=== PATIENT | male | born 1975 | race Caucasian/White ===

== ENCOUNTER 2020-07-29 19:49 | Inpatient (IN) | payer MEDICARE, OTHER ==
[~2020-07-29] VITALS: Ht 170.2 cm; Wt 141.5 kg
--- NOTE | 2020-07-29 19:53 | NUR ---
JOSELIN FROM [facility] FOR ABNORMAL LAB. PT MISSED HIS HD SESSION TODAY DUE TO "I WAS FEELING SICK, & I HAD PINK SPUTUM EARLIER TODAY", PT AAOX4, DENIES SOB/CP. VSS. NAD. PENDING ER PROVIDER DARRICK
[2020-07-29 20:17] LABS: BASOPHILS % (AUTO) 0.9 % (0.0-2.0); EOSINOPHILS % (AUTO) 9.4 % (0.0-6.0); HEMATOCRIT 25 % (39-51); HEMOGLOBIN 8.3 g/dL (13.5-17.5); LYMPHOCYTES # (AUTO) 0.6 /CMM (0.8-4.8); LYMPHOCYTES % (AUTO) 13.1 % (20.0-44.0); MEAN CORPUSCULAR HGB CONC 33 g/dl (31.0-36.0); MEAN CORPUSCULAR VOLUME 90 fL (80-96); MONOCYTES # (AUTO) 0.3 /CMM (0.1-1.30); NEUTROPHILS # (AUTO) 3.3 /CMM (1.8-8.9); NEUTROPHILS % (AUTO) 69.6 % (43.0-81.0); PLATELET COUNT (AUTO) 158 /CMM (150-450); RED BLOOD CELL COUNT(AUTO) 2.75 MIL/uL (4.5-6.0); WHITE BLOOD COUNT (AUTO) 4.7 K/uL (4.3-11.0)
[2020-07-29 20:38] LABS: ALANINE AMINOTRANSFERASE 20 U/L (12-78); ALBUMIN 3.3 g/dL (3.4-5.0); ALKALINE PHOSPHATASE 78 U/L (46-116); ASPARTATE AMINOTRANSFERASE 24 U/L (15-37); B-TYPE NATRIURETIC PEPTIDE 3982 PG/ML (0-125); BILIRUBIN,DIRECT 0.1 mg/dL (0.0-0.2); BILIRUBIN,TOTAL 0.5 mg/dL (0.2-1.0); CALCIUM, SERUM 8.8 mg/dL (8.5-10.1); CARBON DIOXIDE 27 mmol/L (21-32); CHLORIDE 95 mmol/L (98-107); GLUCOSE 106 mg/dL (74-106); POTASSIUM 5.5 mmol/L (3.5-5.1); SODIUM SERUM 134 mmol/L (136-145); TOTAL PROTEIN, SERUM 6.9 g/dL (6.4-8.2); UREA NITROGEN, BLOOD 73 mg/dL (7-18)
[2020-07-29 20:45] LABS: CREATININE 10.9 mg/dL (0.6-1.3)
[2020-07-29] MEDS ORDERED: LEVOFLOXACIN 750 MG /D5W 150ML 150 ML IV ONE ×2 (22:00→22:05)
[2020-07-29] MEDS ORDERED: ALPR0.25 PO (22:25)
[2020-07-29] MEDS ORDERED: SEVE800T8 PO (22:25)
[2020-07-29] MEDS ORDERED: LITH150C PO (22:25)
[2020-07-29] MEDS ORDERED: ALBU18HF2 INH (22:25)
[2020-07-29] MEDS ORDERED: RISP1TAB97 PO (22:25)
[2020-07-29] MEDS ORDERED: BUPR150T10 PO (22:25)
[2020-07-29] MEDS ORDERED: ROPI0.5T4 PO (22:25)
[2020-07-29] MEDS ORDERED: ESTR1PAT7 TD (22:25)
[2020-07-29] MEDS ORDERED: MOME13HF IH (22:25)
[2020-07-29] MEDS ORDERED: POLY17PO4 PO (22:25)
[2020-07-29] MEDS ORDERED: GABA300C PO (22:25)
[2020-07-29] MEDS ORDERED: PROC10TA13 PO (22:25)
[2020-07-29] MEDS ORDERED: HYDR-500 PO (22:25)
[2020-07-29] MEDS ORDERED: ONDA4TAB5 PO (22:25)
[2020-07-29] MEDS ORDERED: METO25TA6 PO (22:25)
[2020-07-29] MEDS ORDERED: OXYC-128 PO (22:25)
[2020-07-29] MEDS ORDERED: LIDO30AD10 TP (22:25)
--- NOTE | 2020-07-29 22:42 | NUR ---
RECIEVED BED 120
--- NOTE | 2020-07-29 22:50 | NUR ---
RN NOTE RECEIVED PT FROM ER VIA SHERLY ACCOMPANIED BY RN. PT IS ALERT AND ORIENTED X 4. AMBULATORY WITHOUT ASSIST. PT ON 4L OF O2 VIA NC. DENIES PAIN OR DISCOMFORT. WITH RIGHT AC 20G FLUSHED AND PATENT WITHOUT COMPLICATIONS NOTED. COMPREHENSIVE PHYSICAL ASSESSMENT COMPLETED. SKIN INTACT. WITH LEFT UPPER ARM AV FISTULA. (+) BRUIT (+) THRILL. PT STATES LAST HEMO DIALYSIS IS 07/27/2020. V BELT MOLD ASSEMBLER AND CURER PLACED SHOWING NSR. PT ORIENTED TO FACILITY, CALL LIGHT WITHIN REACH, SAFETY MEASURES IN PLACE PER PROTOCOL, BED ALARM ON, BED LOCKED AND IN LOW POSITION, SIDE RAILS UP X 2, WILL MONITOR PATIENT, ISABELLA OSBORN TO EXAMINE PT AND ENTER NEW ADMISSION ORDERS. Addendum: 07/30/20 at 0022 by MAYI DUENAS RN ERROR. CORRECTED TIME 2418
--- NOTE | 2020-07-29 23:38 | NUR ---
REPORT GIVEN TO MAYI SAN FOR BRITNEY PT WILL BE TRANSPORTED TO 1ST FLOOR
[2020-07-30] VITALS: BP 155/84
[2020-07-30] MEDS ORDERED: HYDROCODONE/APAP 5/325MG TABLET PO PRN
[2020-07-30] MEDS ORDERED: ZOLPIDEM TARTRATE 5 MG TABLET PO PRN
[2020-07-30] MEDS ORDERED: ALPRAZOLAM 0.25 MG TABLET PO SCH
[2020-07-30] MEDS ORDERED: IPRATROPIUM BROMIDE 14 GM INHALER (or 12.9 GM) IH PRN (00:30)
[2020-07-30] MEDS ORDERED: ALBUTEROL SULFATE INH 18 GM HFA.AER.AD IH PRN (00:30)
--- NOTE | 2020-07-30 00:40 | NUR ---
RN NOTE RT AT BEDSIDE PLACING PT ON CPAP ORDERED.
[2020-07-30] MEDS: GABAPENTIN 300 MG CAPSULE PO SCH ×2 (01:09→21:20)
[2020-07-30] MEDS: ropiniROLE 0.5 MG TABLET PO SCH ×2 (01:09→17:11)
[2020-07-30] MEDS: SEVELAMER CARBONATE 800 MG TABLET PO SCH ×4 (01:09→17:14)
[2020-07-30] MEDS: HEPARIN SODIUM, PORCINE 5000 UNITS/1 ML VIAL SQ SCH ×5 (01:11→21:22)
[2020-07-30] MEDS: methylPREDNISolone SOD SUCC 125 MG/2ML VIAL IV SCH ×3 (01:13→17:14)
--- NOTE | 2020-07-30 01:13 | NUR ---
RT PLACED PATIENT ON NOCTURNAL BIPAP PER MD ORDER. PATIENT STABLE AND TOLERATED CURRENT SETTINGS. WILL CONTINUE TO MONITOR THROUGHOUT THE SHIFT. Addendum: 07/30/20 at 0116 by MADDISON DORSEY RT Amended: Links added.
[2020-07-30 02:24] LABS: C-REACTIVE PROTEIN 1.5 mg/dL (0.0-0.9)
--- NOTE | 2020-07-30 03:38 | NUR ---
RT PATIENT OFF BIPAP AT THIS TIME PER PATIENT REQUEST AND PLACED ON 4L NASAL CANNULA. NO RESPIRATORY DISTRESS NOTED, WILL CONTINUE TO MONITOR. Addendum: 07/30/20 at 0341 by MADDISON DORSEY RT Amended: Links added.
[2020-07-30 04:00] VITALS: BP 150/79
--- NOTE | 2020-07-30 04:18 | NUR ---
RN NOTE PT REQUESTING FOR PRN INHALER. MEDICATION UNAVAILABLE. PAGED ROBI LICENSED REACTOR OPERATOR IF IT CAN BE CHANGED TO NEBULIZER UNTIL MEDICATION IS READY. ALSO PT IS REQUESTING FOR PRN XANAX. CALLED PHARMACY WHO STATES THAT PRESCRIBER NEEDS TO CLARIFY ORDER. AWAITING CALL BACK. Addendum: 07/30/20 at 0502 by MAYI DUENAS RN LICENSED REACTOR OPERATOR CALLED BACK AND PLACED NEW ORDERS. PT MOVED TO ROOM 111 PER PT REQUEST. OFF BIBAP AND ON 4L OF O2 VIA NC. CURRENTLY SITTING UP IN CHAIR AWAKE.
[2020-07-30] MEDS: ALPRAZOLAM 0.25 MG TABLET PO PRN ×2 (04:39→12:23)
[2020-07-30] MEDS: GUAIFENESIN/CODEINE 10 ML UDC PO PRN ×2 (04:54→21:32)
[2020-07-30] MEDS: oxyCODONE/APAP (5/325 MG) 1 UDTAB TABLET PO PRN ×2 (04:54→21:32)
[2020-07-30] MEDS ORDERED: IPRATROPIUM BROMIDE 14 GM INHALER (or 12.9 GM) ONE (05:35)
[2020-07-30] MEDS ORDERED: ALBUTEROL SULFATE 8 GM HFA.AER.AD ONE (05:35)
[2020-07-30 06:40] LABS: BASOPHILS # (AUTO) 0.1 /CMM (0.0-0.2); BASOPHILS % (AUTO) 1.2 % (0.0-2.0); CALCIUM, SERUM 9.3 mg/dL (8.5-10.1); HEMATOCRIT 25 % (39-51); HEMOGLOBIN 8.4 g/dL (13.5-17.5); LYMPHOCYTES # (AUTO) 0.5 /CMM (0.8-4.8); LYMPHOCYTES % (AUTO) 11.5 % (20.0-44.0); MAGNESIUM 2.6 mg/dL (1.8-2.4); MEAN CORPUSCULAR HGB CONC 34 g/dl (31.0-36.0); MEAN CORPUSCULAR VOLUME 89 fL (80-96); MONOCYTES # (AUTO) 0.3 /CMM (0.1-1.30); MONOCYTES % (AUTO) 6.1 % (2.0-12.0); NEUTROPHILS # (AUTO) 3.3 /CMM (1.8-8.9); NEUTROPHILS % (AUTO) 73.2 % (43.0-81.0); PLATELET COUNT (AUTO) 150 /CMM (150-450); POTASSIUM 5.6 mmol/L (3.5-5.1); RED BLOOD CELL COUNT(AUTO) 2.81 MIL/uL (4.5-6.0); WHITE BLOOD COUNT (AUTO) 4.5 K/uL (4.3-11.0)
--- NOTE | 2020-07-30 06:42 | NUR ---
RN NOTE RECEIVED ALERT FOR CRITICAL LAB PHOSPHOROUS 9.4. PT IS PENDING HEMODIALYSIS TODAY PER NEPHROLOGY. WILL ENDORSE TO MORNING RN.
--- NOTE | 2020-07-30 06:44 | NUR ---
RN NOTE PT CURRENTLY RESTING IN BED IN NO APPARENT DISTRESS. ON 4L OF O2 VIA NC. CALL LIGHT WITHIN REACH, SAFETY MEASURES IN PLACE PER PROTOCOL, ALL NEEDS MET AND ATTENDED TO.
[2020-07-30 06:47] LABS: CREATININE 11.4 mg/dL (0.6-1.3); PHOSPHORUS 9.4 mg/dL (2.5-4.9)
--- NOTE | 2020-07-30 07:30 | NUR ---
RN OPENING NOTE PATIENT IS IN BED WITH HOB AT SEMI FOWLERS POSITION. CURRENTLY ON 4L WITH NO SIGNS OF LABORED BREATHING. PATIENT IS AOX4. SKIN IS INTACT. RAC #20 IS PATENT, INTACT, AND HAS NO SIGNS OF INFILTRATION. JONH AVF IS NOTED WITH BRUIT AND THRILL. BED IS LOCKED IN THE LOWEST POSITION, 3 GUARD RAILS RAISED, CALL SMITH WITHIN REACH, AND ALL HOSPITAL SAFETY PRECAUTIONS ARE BEING FOLLOWED. WILL CONTINUE TO MONITOR THROUGHOUT SHIFT.
[2020-07-30 08:00] VITALS: BP 146/65
[2020-07-30] MEDS: LITHIUM CARBONATE 150 MG CAPSULE PO SCH (08:08)
[2020-07-30] MEDS: buPROPion SR 150 MG TABLET.ER PO SCH ×2 (08:08→17:10)
[2020-07-30] MEDS: POLYETHYLENE GLYCOL 3350 17 GM POWD.PACK PO SCH (08:08)
[2020-07-30] MEDS: METOPROLOL TARTRATE 25 MG TABLET PO SCH ×2 (08:09→17:11)
[2020-07-30] MEDS: risperiDONE 1 MG TABLET PO SCH (08:09)
[2020-07-30] MEDS ORDERED: CT SWABBABLE VALVE TRANS SET 1 EA INFUS.SET MC ONE (10:11)
[2020-07-30] MEDS ORDERED: IV NS 0.9% 250 ML IV ONE (10:11)
[2020-07-30] MEDS ORDERED: IOHEXOL-300 100 ML VIAL IV ONE (10:11)
--- NOTE | 2020-07-30 10:37 | NUR ---
PT REFUSED, WANTS DIALYSIS PRIOR TO SCAN. UNABLE TO LAY STILL OR BREATHE.
--- NOTE | 2020-07-30 10:47 | NUR ---
RN NOTE NOTIFIED DR. DIAZ OF PATIENT'S SOB. EXPECTED DIALYSIS LATER TODAY. WILL CONTINUE TO MONITOR.
[2020-07-30] MEDS: IPRATROPIUM NEB FS 0.5 MG/2.5 ML AMPUL.NEB NEB SCH ×4 (11:30→23:12)
[2020-07-30] MEDS: ALBUTEROL FS 2.5 MG/3 ML VIAL.NEB NEB SCH ×4 (11:30→23:12)
[2020-07-30 12:00] VITALS: BP 129/46
--- NOTE | 2020-07-30 13:00 | NUR ---
RN NOTE PATIENT IS COMPLAINING OF SOB AT REST. RT NOTIFIED. ALSO PATIENT REFUSES TO GOT TO CT UNTIL AFTER DIALYSIS LATER TODAY. WILL ENDORSE TO BILLET RECORDER IF NOT ABLE TO COMPLETE BY END OF SHIFT.
[2020-07-30 16:00] VITALS: BP 112/38
--- NOTE | 2020-07-30 19:10 | NUR ---
RN CLOSING NOTE PATIENT IS IN BED WITH HOB AT SEMI FOWLERS POSITION. CURRENTLY ON 4L WITH NO SIGNS OF LABORED BREATHING. PATIENT IS AOX4. SKIN IS INTACT. RAC #20 IS PATENT, INTACT, AND HAS NO SIGNS OF INFILTRATION. JONH AVF IS NOTED WITH BRUIT AND THRILL. BED IS LOCKED IN THE LOWEST POSITION, 3 GUARD RAILS RAISED, CALL SMITH WITHIN REACH, AND ALL HOSPITAL SAFETY PRECAUTIONS ARE BEING FOLLOWED. ALL NECESSARY MEDS GIVEN AND PATIENT REMAINED STABLE THROUGHOUT SHIFT. WILL ENDORSE TO SNAP SHEARER RN.
[2020-07-30] MEDS: ACETAMINOPHEN 325 MG TABLET PO PRN (19:19)
--- NOTE | 2020-07-30 19:22 | NUR ---
PIG MACHINE CRANE OPERATOR OPENING NOTES PATIENT A/O X4; ABLE TO MAKE NEEDS KNOWN. ON O2 4LPM VIA N/C; TOLERATING WELL WITH NO SOB. EXTERNAL DIRECTOR CHEMISTRY READS NSR AND HR AT 88. IV #20G TO RAC; PATENT AND INTACT. AVF TO JONH INTACT; DRESSING C/D/I. SAFETY MEASURES IN PLACE: SIDE RAILS UPX2, CALL LIGHT WITHIN REACH, BED IN LOWEST LOCKED POSITION. PATIENT MEDICALLY STABLE.
[2020-07-30 20:00] VITALS: BP 111/46
[2020-07-30] MEDS ORDERED: LIDOCAINE 5% (PATCH) 1 EA PATCH TP SCH (22:00)
--- NOTE | 2020-07-30 22:38 | NUR ---
HISTORIC CLOTHING AND COSTUME MAKER NOTES - PAIN PATIENT C/O 12/28 HIP PAIN. ADMINISTERED PERCOCET ORDERED. WILL CONTINUE TO ASSESS PATIENT FOR PAIN.
--- NOTE | 2020-07-30 22:40 | NUR ---
STAFF ACCOUNTANT NOTES - LIDOCAINE PATIENT REQUESTED FOR LIDOCAINE PATCHES TO THE HIPS FOR PAIN. ROBI OSBORN EDITOR [place] ORDERED FOR LIDOCAINE PATCH 5% TO THE LEFT AND RIGHT HIP DAILY. ORDERS CARRIED OUT.
[2020-07-30] MEDS: LIDOCAINE 5% (PATCH) 1 EA PATCH TP SCH ×2 (23:47)
[2020-07-31 00:07] VITALS: BP 136/70
[2020-07-31] MEDS: methylPREDNISolone SOD SUCC 125 MG/2ML VIAL IV SCH ×3 (01:21→17:31)
[2020-07-31] MEDS: ACETAMINOPHEN 325 MG TABLET PO PRN ×2 (01:55→08:00)
[2020-07-31] MEDS: ONDANSETRON HCL/PF 4 MG/2 ML VIAL IVP PRN (02:43)
[2020-07-31] MEDS: ALBUTEROL FS 2.5 MG/3 ML VIAL.NEB NEB SCH ×6 (03:23→23:50)
[2020-07-31] MEDS: IPRATROPIUM NEB FS 0.5 MG/2.5 ML AMPUL.NEB NEB SCH ×6 (03:23→23:50)
[2020-07-31 04:00] VITALS: BP 133/80
--- NOTE | 2020-07-31 04:13 | NUR ---
INDUSTRY CONSULTANT NOTES - PCR NEG COVID PCR SWAB TAKEN ON 07/29/2020; RESULT IS NEGATIVE. CHARGE NURSE AWARE.
--- NOTE | 2020-07-31 05:46 | NUR ---
DEPARTMENTAL SHIPPING CLERK CLOSING NOTES PATIENT A/O X4; ABLE TO MAKE NEEDS KNOWN. ON O2 4LPM VIA N/C; TOLERATING WELL WITH NO SOB; PATIENT REFUSED NOCTURNAL BIPAP DURING THE NIGHT. EXTERNAL PRODUCT DESIGN ENGINEER READS NSR AND HR AT 82. IV #20G TO RAC; PATENT AND INTACT. AVF TO JONH INTACT; DRESSING C/D/I. ALL NEEDS MET. SAFETY MEASURES IN PLACE: SIDE RAILS UPX2, CALL LIGHT WITHIN REACH, BED IN LOWEST LOCKED POSITION. PATIENT MEDICALLY STABLE. WILL ENDORSE BRITNEY TO ONCOMING MORNING RN.
[2020-07-31 06:31] LABS: BASOPHILS % (AUTO) 0.2 % (0.0-2.0); EOSINOPHILS % (AUTO) 0.1 % (0.0-6.0); HEMATOCRIT 23 % (39-51); HEMOGLOBIN 7.8 g/dL (13.5-17.5); LYMPHOCYTES # (AUTO) 0.2 /CMM (0.8-4.8); LYMPHOCYTES % (AUTO) 3.7 % (20.0-44.0); MEAN CORPUSCULAR HGB CONC 34 g/dl (31.0-36.0); MEAN CORPUSCULAR VOLUME 89 fL (80-96); MONOCYTES # (AUTO) 0.1 /CMM (0.1-1.30); MONOCYTES % (AUTO) 2.3 % (2.0-12.0); NEUTROPHILS # (AUTO) 3.9 /CMM (1.8-8.9); NEUTROPHILS % (AUTO) 93.7 % (43.0-81.0); PLATELET COUNT (AUTO) 159 /CMM (150-450); RED BLOOD CELL COUNT(AUTO) 2.58 MIL/uL (4.5-6.0); WHITE BLOOD COUNT (AUTO) 4.2 K/uL (4.3-11.0)
[2020-07-31 06:45] LABS: CALCIUM, SERUM 9.5 mg/dL (8.5-10.1); POTASSIUM 5.4 mmol/L (3.5-5.1)
[2020-07-31 06:52] LABS: CREATININE 9.1 mg/dL (0.6-1.3)
--- NOTE | 2020-07-31 07:10 | NUR ---
RN OPENING NOTE PATIENT RECEIVED IN BED RESTING SEMI FOWLERS POSITION. PATIENT IS ON O2 THERAPY VIA NC AT 4 LPM WITH NO SIGNS OF LABORED BREATHING. PATIENT IS AOX4. SKIN IS INTACT. RAC #20 IS PATENT, INTACT, AND HAS NO SIGNS OF INFILTRATION. JONH AVF IS NOTED WITH BRUIT AND THRILL. SAFETY PRECAUTIONS IMPLEMENTED, BED LOCKED IN THE LOWEST POSITION, SIDE RAILS UP X2, CALL LIGHT WITHIN REACH. WILL CONTINUE TO MONITOR AND PROVIDE CARE THROUGHOUT SHIFT.
[2020-07-31 08:00] VITALS: BP 137/73
[2020-07-31] MEDS: SEVELAMER CARBONATE 800 MG TABLET PO SCH ×3 (08:00→17:31)
[2020-07-31] MEDS ORDERED: ESTRADIOL TD SCH (09:00)
[2020-07-31] MEDS ORDERED: [UNRECOGNIZED DRUG - OTHER] TD SCH (09:00)
[2020-07-31] MEDS: HEPARIN SODIUM, PORCINE 5000 UNITS/1 ML VIAL SQ SCH ×3 (09:00→21:00)
[2020-07-31] MEDS: LITHIUM CARBONATE 150 MG CAPSULE PO SCH (09:37)
[2020-07-31] MEDS: METOPROLOL TARTRATE 25 MG TABLET PO SCH ×2 (09:38→17:28)
[2020-07-31] MEDS: risperiDONE 1 MG TABLET PO SCH (09:38)
[2020-07-31] MEDS: POLYETHYLENE GLYCOL 3350 17 GM POWD.PACK PO SCH (09:38)
[2020-07-31] MEDS: buPROPion SR 150 MG TABLET.ER PO SCH ×2 (09:39→17:28)
[2020-07-31] MEDS ORDERED: CT SWABBABLE VALVE TRANS SET 1 EA INFUS.SET MC ONE (10:19)
[2020-07-31] MEDS ORDERED: IV NS 0.9% 0 ML IV ONE (10:19)
[2020-07-31] MEDS ORDERED: IOHEXOL-300 100 ML VIAL IV ONE (10:19)
[2020-07-31] MEDS: oxyCODONE/APAP (5/325 MG) 1 UDTAB TABLET PO PRN ×2 (13:00→23:07)
[2020-07-31 13:03] VITALS: BP 127/71
--- NOTE | 2020-07-31 13:54 | NUR ---
PER RN SOON, PATIENT SIGNED CONSENT FOR CT CAP WITH CONTRAST, AND DIALYSIS SCHEDULED TOMORROW 08/01/2020. PATIENT WANTS TO DO THE CT SCAN TOMORROW BEFORE DIALYSIS.
[2020-07-31 16:00] VITALS: BP 143/80
[2020-07-31] MEDS: ropiniROLE 0.5 MG TABLET PO SCH (17:28)
--- NOTE | 2020-07-31 19:11 | NUR ---
RN OPENING NOTE PATIENT RECEIVED IN BED RESTING SEMI FOWLERS POSITION. PATIENT IS ON O2 THERAPY VIA NC AT 4 LPM WITH NO SIGNS OF LABORED BREATHING. PATIENT IS AOX4. SKIN IS INTACT. RAC #20 IS PATENT, INTACT, AND HAS NO SIGNS OF INFILTRATION. JONH AVF IS NOTED WITH BRUIT AND THRILL. SAFETY PRECAUTIONS IMPLEMENTED, BED LOCKED IN THE LOWEST POSITION, SIDE RAILS UP X2, CALL LIGHT WITHIN REACH. PATIENT REFUSED RENVELA TWICE BUT TOOK 3RD DOSE. PATIENT ALSO REFUSED HEPARIN. WILL ENDORSE CARE TO UPCOMING SHIFT.
[2020-07-31 20:00] VITALS: BP 125/64
[2020-07-31] MEDS: GABAPENTIN 300 MG CAPSULE PO SCH (21:14)
[2020-07-31] MEDS ORDERED: LEVOFLOXACIN 500 MG /D5W 100ML 500 MG in PREMIX 1 EA IV SCH (22:00)
[2020-07-31] MEDS: LIDOCAINE 5% (PATCH) 1 EA PATCH TP SCH ×2 (22:47)
--- NOTE | 2020-07-31 23:00 | NUR ---
PT COMPLETED HD WITH OUTPUT OF 3000 ML LATEST V/S 124/54 HR 89 RR 20 TEMP 98.4 SPO2 96% PT IS ALERT/ORIENTED X4 NO SOB NOTED, WILL CONT TO MONITOR THE PT
[2020-07-31] MEDS: ALPRAZOLAM 0.25 MG TABLET PO PRN (23:06)
[2020-07-31] MEDS: GUAIFENESIN/CODEINE 10 ML UDC PO PRN (23:07)
[2020-08-01] VITALS: BP 142/60
[2020-08-01] MEDS: methylPREDNISolone SOD SUCC 125 MG/2ML VIAL IV SCH ×3 (01:00→17:08)
[2020-08-01] MEDS: ACETAMINOPHEN 325 MG TABLET PO PRN ×2 (01:20→23:32)
[2020-08-01] MEDS: ALBUTEROL FS 2.5 MG/3 ML VIAL.NEB NEB SCH ×6 (03:30→23:30)
[2020-08-01] MEDS: IPRATROPIUM NEB FS 0.5 MG/2.5 ML AMPUL.NEB NEB SCH ×6 (03:30→23:30)
[2020-08-01 04:00] VITALS: BP 138/60
[2020-08-01 06:28] LABS: BASOPHILS % (AUTO) 0.1 % (0.0-2.0); HEMATOCRIT 23 % (39-51); HEMOGLOBIN 7.6 g/dL (13.5-17.5); LYMPHOCYTES # (AUTO) 0.1 /CMM (0.8-4.8); LYMPHOCYTES % (AUTO) 2.9 % (20.0-44.0); MEAN CORPUSCULAR HGB CONC 33 g/dl (31.0-36.0); MEAN CORPUSCULAR VOLUME 89 fL (80-96); MONOCYTES # (AUTO) 0.1 /CMM (0.1-1.30); MONOCYTES % (AUTO) 3.3 % (2.0-12.0); NEUTROPHILS % (AUTO) 93.7 % (43.0-81.0); PLATELET COUNT (AUTO) 170 /CMM (150-450); RED BLOOD CELL COUNT(AUTO) 2.58 MIL/uL (4.5-6.0); WHITE BLOOD COUNT (AUTO) 4.2 K/uL (4.3-11.0)
[2020-08-01 06:32] LABS: CALCIUM, SERUM 9.4 mg/dL (8.5-10.1); CREATININE 7.4 mg/dL (0.6-1.3); POTASSIUM 4.8 mmol/L (3.5-5.1)
--- NOTE | 2020-08-01 06:56 | NUR ---
PT ON BED ASLEEP EASY TO WAKE UP STILL ON 4L O2 VIA NC TELE MONITOR READS SINUS RHYTHM 90'S PT FOR CT ABDOMEN WITH CONTRAST ADVISE PT NOT TO TAKE ANY FOOD SINCE MIDNIGHT , BED ON LOWEST POSITION AND LOCKED SIDE RAILS UP X2 CALL LIGHT WITHIN REACH WILL ENDORSED TO AM SHIFT NURSE
[2020-08-01] MEDS: ONDANSETRON HCL/PF 4 MG/2 ML VIAL IVP PRN (07:40)
--- NOTE | 2020-08-01 07:59 | NUR ---
television specialist note patient in bed , alert oriented c\o nausea Zofran ivp given called to radiology about ct scan will come soon , hd will be done soon , on tele monitor sr hr 88 ,rt ac hl intact and flushed well , danni avf in place with bruit sound , bed in lowest and locked position , call light within reach, plan of care discussed with patient will cont to monitor
[2020-08-01 08:00] VITALS: BP 158/59
[2020-08-01] MEDS: HEPARIN SODIUM, PORCINE 5000 UNITS/1 ML VIAL SQ SCH ×3 (09:00→20:42)
[2020-08-01] MEDS: POLYETHYLENE GLYCOL 3350 17 GM POWD.PACK PO SCH ×2 (09:00→09:23)
--- NOTE | 2020-08-01 09:16 | NUR ---
telephoto installer note spoke with radiology ok to do soon per Justin hd nurse will do hd soon dr gilbert notified
[2020-08-01] MEDS: LITHIUM CARBONATE 150 MG CAPSULE PO SCH (09:23)
[2020-08-01] MEDS: buPROPion SR 150 MG TABLET.ER PO SCH ×2 (09:23→16:52)
[2020-08-01] MEDS: METOPROLOL TARTRATE 25 MG TABLET PO SCH ×2 (09:23→16:53)
[2020-08-01] MEDS ORDERED: IOHEXOL-300 100 ML VIAL IV ONE (09:31)
[2020-08-01] MEDS: risperiDONE 1 MG TABLET PO SCH (09:33)
[2020-08-01] MEDS: SEVELAMER CARBONATE 800 MG TABLET PO SCH ×3 (09:52→17:08)
--- NOTE | 2020-08-01 09:53 | NUR ---
television writer note ct abdomen done as ordered
--- NOTE | 2020-08-01 11:58 | NUR ---
telephone instrument supervisor note on hd at this time
[2020-08-01 12:00] VITALS: BP 137/59
--- NOTE | 2020-08-01 13:36 | NUR ---
television installer ote hd completed, 2l of fluid removed bp145/78
--- NOTE | 2020-08-01 15:14 | NUR ---
color television console monitor nnote on breathing tx as ordered,rt at bedside
[2020-08-01 16:00] VITALS: BP 119/42
[2020-08-01] MEDS: ropiniROLE 0.5 MG TABLET PO SCH (17:08)
--- NOTE | 2020-08-01 18:51 | NUR ---
QUALITY SYSTEM MANAGER NOTE RESTING COMFORTABLY IN BED NO SOB NOTED , BED IN LOWEST AND LOCKED POSITION, WILL CONT TO MONITOR CLOSELY
--- NOTE | 2020-08-01 19:15 | NUR ---
director technical opening notes Received Pt sitting in bed comfortably. Pt is alert and orientedX4. Respiration on 4L NC. No SOB. No S/S of distress noted. Tele monitor showed SR Hr at 85. IV site at RAC# 20 is clean, intact, flushes well and SL. JONH AVF is clean, intact and dry. Safety precautions is maintained. Bed at low position, brakes locked, side railsupX2, hob elevated and call light is within reach. Will continue to monitor.
[2020-08-01 20:00] VITALS: BP 123/39
--- NOTE | 2020-08-01 20:43 | NUR ---
scrap iron cutter notes Pt refused heparin 5000 unit/SQ. Explained risks and benefits. Offered multiple times. Pt keep refusing. Will continue to monitor.
[2020-08-01] MEDS: GABAPENTIN 300 MG CAPSULE PO SCH (21:01)
[2020-08-01] MEDS: ALPRAZOLAM 0.25 MG TABLET PO PRN (21:10)
[2020-08-01] MEDS: GUAIFENESIN/CODEINE 10 ML UDC PO PRN (21:10)
--- NOTE | 2020-08-01 21:13 | NUR ---
technical support assistant notes Pt is feeling anxious and requesting meds. Administered xanax 0.25 mg/po/prn as ordered for anxiety. VS is stable. Safety precautions is maintained. Will continue to monitor.
[2020-08-01] MEDS: oxyCODONE/APAP (5/325 MG) 1 UDTAB TABLET PO PRN (21:38)
--- NOTE | 2020-08-01 21:40 | NUR ---
striker out notes Pt is complaining of hip pain and requesting pain meds. Administered percocet 5/325mg/1 tab/po/prn as ordered for pain. VS is stable. Safety precautions is maintained. Will continue to monitor.
[2020-08-01] MEDS: LIDOCAINE 5% (PATCH) 1 EA PATCH TP SCH ×2 (22:23→22:24)
--- NOTE | 2020-08-01 23:32 | NUR ---
appointment clerk notes Pt's complaining of headache and requesting tylenol. Administered tylenol 325mg/2 tabs/po/prn as ordered for headache. Safety precautions is maintained. Will continue to monitor.
--- NOTE | 2020-08-01 23:42 | NUR ---
carding utility tender notes Per RT Quinn, RT, Pt refused bipap and breathing treatment. Explained risks and benefits. Pt keep refusing. No SOB. No S/s of distress noted. Will continue to monitor.
--- NOTE | 2020-08-02 | NUR ---
box toe flanger stitchdowns notes Pt refused VS due at 0000. Offered multiple times. Explained risks and benefits. Pt keep refusing. Will continue to monitor.
[2020-08-02] MEDS: methylPREDNISolone SOD SUCC 125 MG/2ML VIAL IV SCH ×3 (01:01→17:21)
[2020-08-02] MEDS: IPRATROPIUM NEB FS 0.5 MG/2.5 ML AMPUL.NEB NEB SCH ×6 (03:34→23:40)
[2020-08-02] MEDS: ALBUTEROL FS 2.5 MG/3 ML VIAL.NEB NEB SCH ×6 (03:34→23:40)
--- NOTE | 2020-08-02 03:40 | NUR ---
funnel setter notes Rt at the bedside for breathing treatment.
[2020-08-02 04:00] VITALS: BP 143/66
[2020-08-02] MEDS: oxyCODONE/APAP (5/325 MG) 1 UDTAB TABLET PO PRN ×2 (04:23→21:37)
--- NOTE | 2020-08-02 06:37 | NUR ---
glass ribbon machine operator assistant closing notes Pt is resting in bed comfortably. Pt is alert and orientedX4. Respiration on 4L NC. No SOB. No S/S of distress noted. Tele monitor showed SR Hr at 89. Vs is stable. Afebrile. Routine meds were given as ordered. IV site at RAC# 20 is clean, intact, flushes well and SL. JONH AVF is clean, intact and dry. Kept Pt clean, dry and comfortable. All needs met and attended. Safety precautions is maintained. Bed at low position, brakes locked, side railsupX2, hob elevated and call light is within reach. Will endorse to morning nurse for BRITNEY.
[2020-08-02 06:57] LABS: BASOPHILS % (AUTO) 0.5 % (0.0-2.0); HEMATOCRIT 22 % (39-51); HEMOGLOBIN 7.1 g/dL (13.5-17.5); LYMPHOCYTES # (AUTO) 0.2 /CMM (0.8-4.8); LYMPHOCYTES % (AUTO) 4.1 % (20.0-44.0); MEAN CORPUSCULAR HGB CONC 32 g/dl (31.0-36.0); MEAN CORPUSCULAR VOLUME 92 fL (80-96); MONOCYTES # (AUTO) 0.2 /CMM (0.1-1.30); MONOCYTES % (AUTO) 3.6 % (2.0-12.0); NEUTROPHILS # (AUTO) 5.1 /CMM (1.8-8.9); NEUTROPHILS % (AUTO) 91.8 % (43.0-81.0); PLATELET COUNT (AUTO) 195 /CMM (150-450); RED BLOOD CELL COUNT(AUTO) 2.42 MIL/uL (4.5-6.0); WHITE BLOOD COUNT (AUTO) 5.6 K/uL (4.3-11.0)
[2020-08-02 07:02] LABS: CALCIUM, SERUM 9.6 mg/dL (8.5-10.1); CREATININE 7.3 mg/dL (0.6-1.3); POTASSIUM 5.4 mmol/L (3.5-5.1)
--- NOTE | 2020-08-02 07:57 | NUR ---
RN OPENING NOTE PATIENT IS CURRENTLY IN BED WITH HOB FLAT. PATIENT IS AOX4. CURRENTLY ON 4L NC WITH NO SIGNS OF LABORED BREATHING. SKIN IS INTACT. RAC #20 IS PATENT, INTACT, AND HAS NO SIGNS OF INFILTRATION. JONH FISTULA HAS BRUIT/THRILL PRESENT. BED IS LOCKED IN THE LOWEST POSITION, THREE GUARD RAILS RAISED, CALL SMITH WITHIN REACH, AND ALL HOSPITAL SAFETY PRECAUTIONS ARE BEING FOLLOWED. WILL CONTINUE TO MONITOR THROUGHOUT SHIFT.
[2020-08-02 08:00] VITALS: BP 168/44
[2020-08-02] MEDS: SEVELAMER CARBONATE 800 MG TABLET PO SCH ×3 (08:00→17:30)
[2020-08-02] MEDS: risperiDONE 1 MG TABLET PO SCH (08:22)
[2020-08-02] MEDS: buPROPion SR 150 MG TABLET.ER PO SCH ×2 (08:22→17:19)
[2020-08-02] MEDS: LITHIUM CARBONATE 150 MG CAPSULE PO SCH (08:23)
[2020-08-02] MEDS: METOPROLOL TARTRATE 25 MG TABLET PO SCH ×2 (08:26→17:19)
[2020-08-02] MEDS: POLYETHYLENE GLYCOL 3350 17 GM POWD.PACK PO SCH (08:35)
[2020-08-02] MEDS: HEPARIN SODIUM, PORCINE 5000 UNITS/1 ML VIAL SQ SCH ×2 (08:35→20:32)
--- NOTE | 2020-08-02 09:00 | NUR ---
RN NOTE PATIENT REFUSED HEPARIN, MIRALAX, SEVELAMER. EDUCATED PATIENT ON IMPORTANCE OF ALL MEDS AND POTENTIAL SIDE EFFECT. PATIENT STILL REFUSED.
[2020-08-02 12:00] VITALS: BP 148/62
[2020-08-02 16:00] VITALS: BP 157/63
[2020-08-02] MEDS: ALPRAZOLAM 0.25 MG TABLET PO PRN (17:18)
[2020-08-02] MEDS: ropiniROLE 0.5 MG TABLET PO SCH (17:19)
--- NOTE | 2020-08-02 17:33 | NUR ---
RN NOTE PATIENT REFUSED SEVELAMER. EDUCATED PATIENT ON IMPORTANCE AND SIDE EFFECTS OF MEDICATION. PATIENT STILL REFUSED.
--- NOTE | 2020-08-02 18:44 | NUR ---
RN CLOSING NOTE PATIENT IS CURRENTLY SITTING IN CHAIR AT BEDSIDE AND ON COMPUTER. PATIENT IS AOX4. CURRENTLY ON 4L NC WITH NO SIGNS OF LABORED BREATHING. SKIN IS INTACT. RAC #20 IS PATENT, INTACT, AND HAS NO SIGNS OF INFILTRATION. JONH FISTULA HAS BRUIT/THRILL PRESENT. BED IS LOCKED IN THE LOWEST POSITION, THREE GUARD RAILS RAISED, CALL SMITH WITHIN REACH, AND ALL HOSPITAL SAFETY PRECAUTIONS ARE BEING FOLLOWED. ALL DUE MEDICATIONS GIVEN MINUS MEDICATIONS THAT PATIENT REFUSED REGARDLESS OF EDUCATION ON IMPORTANCE OF MEDICATION. PATIENT REMAINED STABLE THROUGHOUT SHIFT. WILL ENDORSE TO GEODETIC ENGINEER RN.
--- NOTE | 2020-08-02 19:10 | NUR ---
manager operations opening notes Received Pt sitting in bed comfortably eating dinner. Pt is alert and orientedX4. Respiration is normal in 4 L NC with O2 sat is 96%. No SOB. No S/S of distress noted. Tele monitor showed SR S tachy Hr at 101. IV site at RAC# 20 is clean, intact, flushes well and SL. JONH AVF is clean, intact and dry. Safety precautions is maintained. Bed at low position, brakes locked, side railsupX2, hob elevated and call light is within reach. Will continue to monitor.
[2020-08-02 20:00] VITALS: BP 138/36
--- NOTE | 2020-08-02 20:33 | NUR ---
vb net developer notes Pt refused heparin 5000 unit/SQ. Explained risks and benefits. Offered multiple times. Pt keep refusing. Will continue to monitor.
[2020-08-02] MEDS: GABAPENTIN 300 MG CAPSULE PO SCH (21:18)
[2020-08-02] MEDS: GUAIFENESIN/CODEINE 10 ML UDC PO PRN (21:29)
--- NOTE | 2020-08-02 21:38 | NUR ---
roundsman notes Pt is complaining pain on left and right pain. Administered percocet 5/325mg/1 tab/po/prn as ordered for pain. VS is stable. Safety precautions is maintained. Will continue to monitor.
--- NOTE | 2020-08-02 22:35 | NUR ---
rn imcu closing notes Transferred continuity of care to JASWINDER Moser.
--- NOTE | 2020-08-02 22:45 | NUR ---
FEATHEREDGER AND REDUCER MACHINE NOTE ASSUMED CARE FOR THE PT. PT IS SITTING UP IN CHAIR NO DISTRESS OR DISCOMFORT NOTED. DENIES PAIN. ALL NEEDS ATTENDED. CONTINUE TO MONITOR HIM.
[2020-08-02] MEDS: LIDOCAINE 5% (PATCH) 1 EA PATCH TP SCH ×2 (23:15→23:16)
[2020-08-03] VITALS: BP 158/47
[2020-08-03] MEDS: methylPREDNISolone SOD SUCC 125 MG/2ML VIAL IV SCH ×3 (01:16→17:08)
[2020-08-03] MEDS: ALPRAZOLAM 0.25 MG TABLET PO PRN ×3 (01:24→22:47)
--- NOTE | 2020-08-03 01:27 | NUR ---
EDUCATION DEAN NOTE PT C/O ANXIETY, XANAX GIVEN PO ORDERED. CONTINUE TO MONITOR
[2020-08-03] MEDS: ACETAMINOPHEN 325 MG TABLET PO PRN (02:18)
--- NOTE | 2020-08-03 02:27 | NUR ---
OIL SPECULATOR NOTE ANXIETY SUBSIDED. PT FALL BACK TO SLEEP, EASILY AROUSABLE.
[2020-08-03] MEDS: IPRATROPIUM NEB FS 0.5 MG/2.5 ML AMPUL.NEB NEB SCH ×7 (03:32→23:30)
[2020-08-03] MEDS: ALBUTEROL FS 2.5 MG/3 ML VIAL.NEB NEB SCH ×7 (03:32→23:30)
[2020-08-03 04:00] VITALS: BP 165/98
[2020-08-03 06:45] LABS: BASOPHILS % (AUTO) 0.1 % (0.0-2.0); HEMATOCRIT 24 % (39-51); LYMPHOCYTES # (AUTO) 0.2 /CMM (0.8-4.8); LYMPHOCYTES % (AUTO) 3.9 % (20.0-44.0); MEAN CORPUSCULAR HGB CONC 34 g/dl (31.0-36.0); MEAN CORPUSCULAR VOLUME 89 fL (80-96); MONOCYTES # (AUTO) 0.2 /CMM (0.1-1.30); NEUTROPHILS # (AUTO) 5.1 /CMM (1.8-8.9); PLATELET COUNT (AUTO) 167 /CMM (150-450); RED BLOOD CELL COUNT(AUTO) 2.66 MIL/uL (4.5-6.0); WHITE BLOOD COUNT (AUTO) 5.5 K/uL (4.3-11.0)
--- NOTE | 2020-08-03 06:50 | NUR ---
TALENT SOURCER NOTE PT IN BED ASLEEP, NO DISTRESS OR DISCOMFORT NOTED. ON TELE MONITOR SR HR 90. SIDE RAILS UP X 2 AND CALL LIGHT WITHIN REACH. WILL ENDORSE TO DAY SHIFT NURSE FOR CONTINUE TO CARE.
--- NOTE | 2020-08-03 07:30 | NUR ---
OPENING NOTE RECEIVED PATIENT IN BEDSIDE CHAIR AT THIS TIME. A/OX4, ABLE TO MAKE NEEDS KNOWN. NO S/S OF ACUTE DISTRESS AT THIS TIME. NO SOB NOTED. PATIENT'S BREATHING IS EVEN AND UNLABORED AT THIS TIME. PATIENT IS ON 4L O2 THERAPY VIA NASAL CANNULA; TOLERATING WELL. PATIENT ON A RENAL DIET, TOLERATING WELL. NOTED IV SITE ON R AC 20G RUNNING NS AT 100ML/HR. IV PATENT, INTACT AND FLUSHING WELL. NO S/S OF INFECTION OR INFILTRATION AT THIS TIME. SAFETY MEASURES IN PLACE PER HOSPITAL POLICY. CALL LIGHT WITHIN REACH. WILL CONTINUE TO MONITOR AND PROVIDE CARE.
[2020-08-03 07:44] LABS: CALCIUM, SERUM 9.2 mg/dL (8.5-10.1); POTASSIUM 6.1 mmol/L (3.5-5.1)
[2020-08-03 07:53] LABS: CREATININE 8.9 mg/dL (0.6-1.3)
[2020-08-03 08:00] VITALS: BP 136/78
[2020-08-03] MEDS: SEVELAMER CARBONATE 800 MG TABLET PO SCH ×4 (08:00→17:14)
[2020-08-03] MEDS: LITHIUM CARBONATE 150 MG CAPSULE PO SCH (08:08)
[2020-08-03] MEDS: METOPROLOL TARTRATE 25 MG TABLET PO SCH ×2 (08:08→17:00)
[2020-08-03] MEDS: risperiDONE 1 MG TABLET PO SCH (08:08)
[2020-08-03] MEDS: buPROPion SR 150 MG TABLET.ER PO SCH ×2 (08:09→17:08)
[2020-08-03] MEDS: HEPARIN SODIUM, PORCINE 5000 UNITS/1 ML VIAL SQ SCH ×2 (08:10→20:24)
[2020-08-03] MEDS: POLYETHYLENE GLYCOL 3350 17 GM POWD.PACK PO SCH ×2 (08:15→08:18)
--- NOTE | 2020-08-03 08:18 | NUR ---
PATIENT REFUSED SEVELMAR, MIRALAX AND HEPARIN. EDUCATION PROVIDED BUT PATIENT CONTINUED TO REFUSE
--- NOTE | 2020-08-03 12:58 | NUR ---
PATIENT REFUSED RENVELA 1300 DOSE. EDUCATION PROVIDED. PATIENT CONTINUED TO REFUSE
[2020-08-03 16:00] VITALS: BP 97/37
--- NOTE | 2020-08-03 16:18 | NUR ---
RT Pt is awake and alert, pt refused HHN tx at this time. No SOB or respiratory distress noted.
[2020-08-03] MEDS: ropiniROLE 0.5 MG TABLET PO SCH (17:08)
--- NOTE | 2020-08-03 18:41 | NUR ---
CLOSING NOTE PATIENT IN BEDSIDE CHAIR AT THIS TIME. A/OX4, ABLE TO MAKE NEEDS KNOWN. NO S/S OF ACUTE DISTRESS AT THIS TIME. NO SOB NOTED. PATIENT'S BREATHING IS EVEN AND UNLABORED AT THIS TIME. PATIENT IS ON 4L O2 THERAPY VIA NASAL CANNULA; TOLERATING WELL. PATIENT ON A RENAL DIET, TOLERATING WELL. IV DISLODGED; REMOVED WITH NO S/S OF EXCESSIVE BLEEDING. NO S/S OF INFECTION OR INFILTRATION AT THIS TIME. SAFETY MEASURES IN PLACE PER HOSPITAL POLICY. CALL LIGHT WITHIN REACH. WILL ENDORSE TO PRODUCTION LABORER NURSE FOR BRITNEY.
--- NOTE | 2020-08-03 19:10 | NUR ---
RN OPENING NOTE RECEIVED PATIENT SITTING UP ON CHAIR ALERT ORIENTED X4 VERBALLY RESPONSIVE ON 4L OXYGEN VIA NASAL CANNULA, O2:96% NO IV ACCESS NOTED,LEFT UPPER ARM AV FISTULA,BRUIT AND THRILL PRESENT,AMBULATORY WITH ASSIST,CONTINENT TO BOWEL AND BLADDER CALL LIGHT WITHIN REACH,CONTINUE TO MONITOR.
--- NOTE | 2020-08-03 20:24 | NUR ---
RN NOTE PATIENT REFUSES TO HAVE HEPARIN AFTER EXPLAINED RISK AND BENEFITS STILL REFUSES,CONTINUE TO MONITOR.
--- NOTE | 2020-08-03 21:50 | NUR ---
RN NOTE START A NEW IV LINE ON RIGHT HAND #22 GAUGE NO BLEEDING NO INFILTRATION NO PAIN CONTINUE TO MONITOR
[2020-08-03] MEDS: GABAPENTIN 300 MG CAPSULE PO SCH (22:40)
[2020-08-03] MEDS: GUAIFENESIN/CODEINE 10 ML UDC PO PRN (22:47)
[2020-08-03] MEDS: oxyCODONE/APAP (5/325 MG) 1 UDTAB TABLET PO PRN (22:47)
[2020-08-03] MEDS: LIDOCAINE 5% (PATCH) 1 EA PATCH TP SCH ×2 (22:52→22:53)
[2020-08-04] VITALS: BP 142/81
[2020-08-04] MEDS: ACETAMINOPHEN 325 MG TABLET PO PRN (00:29)
[2020-08-04] MEDS: methylPREDNISolone SOD SUCC 125 MG/2ML VIAL IV SCH ×3 (01:57→17:00)
[2020-08-04] MEDS: IPRATROPIUM NEB FS 0.5 MG/2.5 ML AMPUL.NEB NEB SCH ×4 (03:30→15:30)
[2020-08-04] MEDS: ALBUTEROL FS 2.5 MG/3 ML VIAL.NEB NEB SCH ×4 (03:30→15:30)
[2020-08-04] MEDS: ONDANSETRON HCL/PF 4 MG/2 ML VIAL IVP PRN (04:47)
--- NOTE | 2020-08-04 06:43 | NUR ---
RN NOTE PATIENT REMAINS ON ALERT ORIENTED X4 VERBALLY RESPONSIVE ON 4L OXYGEN VIA NASAL CANNULA, O2:96% NO SOB NOT ACUTE DISTRESS NOTED, IV SITE IS ON RIGHT HAND INTACT PATENT AMBULATORY WITH ASSIST ALL DUE MEDS GIVEN MD ORDERED,KEPT CALL LIGHT WITHIN REACH,KEPT COMFORTABLE,KEPT CLEAN AND DRY ENDORSE NEXT COMING SHIFT FOR CONTINUATION OF CARE.
[2020-08-04 07:05] LABS: CALCIUM, SERUM 9.1 mg/dL (8.5-10.1); POTASSIUM 5.9 mmol/L (3.5-5.1)
[2020-08-04 07:13] LABS: CREATININE 7.9 mg/dL (0.6-1.3)
[2020-08-04 08:00] VITALS: BP 152/58
[2020-08-04] MEDS: SEVELAMER CARBONATE 800 MG TABLET PO SCH ×4 (08:00→16:59)
[2020-08-04] MEDS: POLYETHYLENE GLYCOL 3350 17 GM POWD.PACK PO SCH ×2 (09:00→09:10)
[2020-08-04] MEDS: HEPARIN SODIUM, PORCINE 5000 UNITS/1 ML VIAL SQ SCH (09:00)
[2020-08-04] MEDS: risperiDONE 1 MG TABLET PO SCH (09:10)
[2020-08-04] MEDS: buPROPion SR 150 MG TABLET.ER PO SCH ×2 (09:10→16:59)
[2020-08-04] MEDS: LITHIUM CARBONATE 150 MG CAPSULE PO SCH (09:10)
[2020-08-04] MEDS: METOPROLOL TARTRATE 25 MG TABLET PO SCH ×2 (09:14→16:59)
[2020-08-04 10:34] LABS: BASOPHILS % (AUTO) 0.1 % (0.0-2.0); LYMPHOCYTES # (AUTO) 0.2 /CMM (0.8-4.8); LYMPHOCYTES % (AUTO) 3.5 % (20.0-44.0); MEAN CORPUSCULAR HGB CONC 34 g/dl (31.0-36.0); MEAN CORPUSCULAR VOLUME 88 fL (80-96); MONOCYTES # (AUTO) 0.2 /CMM (0.1-1.30); NEUTROPHILS # (AUTO) 5.5 /CMM (1.8-8.9); NEUTROPHILS % (AUTO) 93.4 % (43.0-81.0); PLATELET COUNT (AUTO) 173 /CMM (150-450); RED BLOOD CELL COUNT(AUTO) 2.28 MIL/uL (4.5-6.0); WHITE BLOOD COUNT (AUTO) 5.8 K/uL (4.3-11.0)
[2020-08-04 10:44] LABS: HEMOGLOBIN 6.7 g/dL (13.5-17.5)
[2020-08-04 10:45] LABS: HEMATOCRIT 20 % (39-51)
[2020-08-04 11:29] LABS: THYROID STIMULATING HORMONE 1.533 uIU/mL (0.358-3.74)
[2020-08-04] MEDS ORDERED: EPOETIN ALFA (10,000 UNIT) 10,000 UNIT/ML VIAL IV ONE (11:30)
--- NOTE | 2020-08-04 11:30 | NUR ---
Received critical result for hgb of 6.7. Informed HUMAN RESOURCES HR GENERALIST [place] and received order for 1 unit of PRBC. Order noted and carried out. MD Trevino gave orders to cancel the transfusion and give [id number] units of epogen with dialysis.. Communicated to lab and HUMAN RESOURCES HR GENERALIST about cancellation. Per Dr Trevino to d.c patient to Rehab today and patient to receive dialysis tomorrow after discharge at the facility.
[2020-08-04] MEDS ORDERED: LIDO30AD10 TP (11:43)
[2020-08-04] MEDS ORDERED: METO25TA20 PO (11:43)
[2020-08-04] MEDS ORDERED: METH4TAB17 PO (11:43)
[2020-08-04] MEDS ORDERED: EPOETIN ALFA (20,000 UNIT) 20,000 UNIT/ML VIAL IV ONE (12:00)
--- NOTE | 2020-08-04 12:56 | NUR ---
Patient finished HD and 2 liters removed per HD nurse.
[2020-08-04 13:38] LABS: LYMPHOCYTES % (MANUAL) 5 % (16-48); MONOCYTES % (MANUAL) 4 % (0-11.0); NEUTROPHILS % (MANUAL) 91 (42-76)
[2020-08-04 16:45] VITALS: BP 158/50
[2020-08-04 16:59] VITALS: BP 158/50
[2020-08-04] MEDS: ropiniROLE 0.5 MG TABLET PO SCH (17:00)
--- NOTE | 2020-08-04 17:30 | NUR ---
Patient discharged to nursing facility in good stable condition. No c/o pain or discomfort. Patient's iv to right hand discontinued and no s/s of bleeding. Report given to nurse Sheppard. Informed Nurse regarding patient's hgb level and doctor's orders.
--- NOTE | 2020-08-04 19:30 | NUR ---
RN CLOSING NOTES Patient in bed in comfortable position. No grimacing or moaning noted. Patient on g tube feeding jyoti well. Gtube checked for patency and placement. Patient kept clean and dry. Turned and repositioned q2h. HD done today with output of 1 liter. Vancomycin given post HD per pharmacy dosing. Endorsed to next shift for BRITNEY. Bed is in lowest and locked position.
[2020-08-05 08:07] LABS: IMMUNOGLOBULIN A, SERUM 185 mg/dL (90-386); IMMUNOGLOBULIN G, SERUM 678 mg/dL (603-1613); IMMUNOGLOBULIN M, SERUM 205 mg/dL (20-172)
[2020-08-05 13:07] LABS: *SPE A/G RATIO 1.4 (0.7-1.7); *SPE ALBUMIN 3.4 g/dL (2.9-4.4); *SPE ALPHA-1-GLOBULIN 0.2 g/dL (0.0-0.4); *SPE ALPHA-2-GLOBULIN 0.7 g/dL (0.4-1.0); *SPE BETA GLOBULIN 0.7 g/dL (0.7-1.3); *SPE GLOBULIN, TOTAL 2.4 g/dL (2.2-3.9); *SPE M-SPIKE Not Observed g/dL (Not Observed); *SPEGAMMA GLOBULIN 0.8 g/dL (0.4-1.8)
== END 2020-08-04 18:10 | DRG 193 ==
LOC: ER 19:49 → TELE1 22:45 → MEDSG1 08-03 08:44
PROVIDERS: ADMIT Nurse Practitioner Acute Care; ATTEND Nurse Practitioner Acute Care
PROC: 5A1D70Z Performance of Urinary Filtration, Intermittent, Less than 6 Hours Per Day (ICD-10-PCS; 2020-07-30)
PROC: 5A09457 Assistance with Respiratory Ventilation, 24-96 Consecutive Hours, Continuous Positive Airway Pressure (ICD-10-PCS; principal; 2020-07-31)
DX: J15.9 Unspecified bacterial pneumonia (principal); N18.6 End stage renal disease; D68.59 Other primary thrombophilia; C77.9 Secondary and unspecified malignant neoplasm of lymph node, unspecified; C78.1 Secondary malignant neoplasm of mediastinum; I12.0 Hypertensive chronic kidney disease with stage 5 chronic kidney disease or end stage renal disease; C78.00 Secondary malignant neoplasm of unspecified lung; J45.909 Unspecified asthma, uncomplicated; Z99.2 Dependence on renal dialysis; E87.5 Hyperkalemia; D63.8 Anemia in other chronic diseases classified elsewhere; Z85.528 Personal history of other malignant neoplasm of kidney; Z90.5 Acquired absence of kidney; Z87.891 Personal history of nicotine dependence; Z88.1 Allergy status to other antibiotic agents; Z20.822 Contact with and (suspected) exposure to COVID-19; Z88.8 Allergy status to other drugs, medicaments and biological substances; Z91.018 Allergy to other foods; G47.33 Obstructive sleep apnea (adult) (pediatric); E66.01 Morbid (severe) obesity due to excess calories; E11.22 Type 2 diabetes mellitus with diabetic chronic kidney disease; N25.0 Renal osteodystrophy; M89.9 Disorder of bone, unspecified; Y95 Nosocomial condition; Z79.899 Other long term (current) drug therapy; E11.65 Type 2 diabetes mellitus with hyperglycemia
CPT/HCPCS: 36415; 71045-TC; 71270-TC; 74178; 80048-TC; 80061-TC; 80076-TC; 82728-TC; 82784; 83540-TC; 83605-TC; 83615-TC; 83735-TC; 83880; 84100-TC; 84155; 84165; 84443-TC; 84484-TC; 85025-TC; 85730-TC; 86140-TC; 86334; 87040-TC; 87081-TC; 90935-TC; 94760-TC; 94799-TC; A4216; C9803; G0378; J0885; J1644; J1956; J2405; J2930; J7042; J7050; Q9967; U0003

== ENCOUNTER 2020-08-19 10:36 | Inpatient (IN) | payer MEDICARE, OTHER ==
[~2020-08-19] VITALS: Ht 170.2 cm; Wt 111.6 kg
[~2020-08-19 10:36] MED LIST: ALBU18HF2 INH; ALPR0.25 PO; BUPR150T10 PO; ESTR1PAT7 TD; GABA300C PO; HYDR-500 PO; LIDO30AD10 TP; LITH150C PO; METH4TAB17 PO; METO25TA20 PO; MOME13HF IH; ONDA4TAB5 PO; OXYC-128 PO; POLY17PO4 PO; PROC10TA13 PO; RISP1TAB97 PO; ROPI0.5T4 PO; SEVE800T8 PO
--- NOTE | 2020-08-19 10:36 | NUR ---
PT BIB [facility] FOR DIALYSIS AVF MALFUNCTION. PT IS AAOX4, NOT IN RESPIRATORY DISTRESS, HOOKED TO ASSEMBLY LEADER, KEPT RESTED AND COMFORTABLE. WILL CONTINUE TO MONITOR.
--- NOTE | 2020-08-19 10:57 | NUR ---
AT BEDSIDE FOR EVAL.
--- NOTE | 2020-08-19 11:02 | NUR ---
IV LINE ESTABLISHED BLOOD DRAWN AND SENT TO LAB.
[2020-08-19] MEDS ORDERED: KETOROLAC TROMETHAMINE 15 MG/ML VIAL ONE (11:52)
[2020-08-19] MEDS ORDERED: ACET-2605 PO (11:58)
[2020-08-19] MEDS ORDERED: CALC667C6 PO (11:58)
[2020-08-19] MEDS ORDERED: TRIA16.99 NS (11:58)
[2020-08-19] MEDS ORDERED: SENN-175 PO (11:58)
[2020-08-19] MEDS ORDERED: DOCU-141 PO (11:58)
[2020-08-19 12:05] LABS: BASOPHILS # (AUTO) 0.1 /CMM (0.0-0.2); HEMOGLOBIN 7.6 g/dL (13.5-17.5); NEUTROPHILS # (AUTO) 2.8 /CMM (1.8-8.9)
[2020-08-19 12:08] LABS: BASOPHILS % (AUTO) 1.4 % (0.0-2.0); EOSINOPHILS % (AUTO) 8.2 % (0.0-6.0); HEMATOCRIT 23 % (39-51); LYMPHOCYTES # (AUTO) 0.6 /CMM (0.8-4.8); LYMPHOCYTES % (AUTO) 14.4 % (20.0-44.0); MEAN CORPUSCULAR HGB CONC 33 g/dl (31.0-36.0); MEAN CORPUSCULAR VOLUME 92 fL (80-96); MONOCYTES # (AUTO) 0.3 /CMM (0.1-1.30); MONOCYTES % (AUTO) 6.6 % (2.0-12.0); NEUTROPHILS % (AUTO) 69.4 % (43.0-81.0); PLATELET COUNT (AUTO) 147 /CMM (150-450); RED BLOOD CELL COUNT(AUTO) 2.53 MIL/uL (4.5-6.0)
[2020-08-19 12:13] LABS: CALCIUM, SERUM 8.6 mg/dL (8.5-10.1); POTASSIUM 3.2 mmol/L (3.5-5.1)
[2020-08-19 12:14] LABS: CREATININE 9.8 mg/dL (0.6-1.3)
[2020-08-19 12:25] LABS: ALBUMIN 3.4 g/dL (3.4-5.0); BILIRUBIN,DIRECT 0.2 mg/dL (0.0-0.2); BILIRUBIN,TOTAL 0.7 mg/dL (0.2-1.0); TOTAL PROTEIN, SERUM 6.7 g/dL (6.4-8.2)
--- NOTE | 2020-08-19 12:30 | NUR ---
CALLED NURSING SUP FOR M/S BED.
--- NOTE | 2020-08-19 12:49 | NUR ---
NURSING SUP CALLED AND GAVE M/S BED 101.
--- NOTE | 2020-08-19 13:52 | NUR ---
REPORT GIVEN TO RN SOON FOR BRITNEY.
[2020-08-19] MEDS ORDERED: MAGNESIUM HYDROXIDE 30 ML UDC PO PRN (14:00)
[2020-08-19] MEDS ORDERED: Z GUARD REMEDY 2 OZ OINT TP PRN (14:00)
[2020-08-19] MEDS ORDERED: MAG HYDROX/AL HYDROX/SIMETH 30 ML UDC PO PRN (14:00)
[2020-08-19] MEDS ORDERED: HYDROCODONE/APAP 5/325MG TABLET PO PRN (14:00)
--- NOTE | 2020-08-19 15:00 | NUR ---
MS RN NOT E RECEIVED PATIENT FROM ER WITH DX AV FISTULA NOT WORKING , ALERT , ORIENTED, X3 NO SOB NOTED ,ON RA , ADMITTED UNDER CARE DR ALEMAN, VS TAKEN, BODY CHECK REFUSED TO BE CHECKED ,STATED I AM OK, ,HOSPITAL ORIENTATION DONE , RT AC HL INTACT AND FLUSHED WELL , WILL MONITOR CLOSELY , BED IN LOWEST AND LOCKED POSITION
[2020-08-19 15:31] VITALS: BP 147/42
--- NOTE | 2020-08-19 16:01 | NUR ---
MS RN NOTE PER DR CRUZ CONSENT FOR LT ARM FISTULA THROMBECTOMY SIGNED BY PATENT
[2020-08-19] MEDS: METOPROLOL TARTRATE 25 MG TABLET PO SCH (16:24)
[2020-08-19] MEDS: DOCUSATE SODIUM 100 MG CAPSULE PO SCH (16:24)
[2020-08-19] MEDS: buPROPion SR 150 MG TABLET.ER PO SCH (16:24)
--- NOTE | 2020-08-19 16:58 | NUR ---
left message re; consultation by waiting for returning call back
[2020-08-19] MEDS: ropiniROLE 0.5 MG TABLET PO SCH (17:20)
--- NOTE | 2020-08-19 17:30 | NUR ---
ms rn note called to dr tilley director integrated notified that k 32.2 no new order given at this time ,aware that tomorrow will have procedure for av fistula to be repair by dr Stack
--- NOTE | 2020-08-19 18:25 | NUR ---
CASE PACKER NOTE ROUNDS MADE ,PLACED ON TELE MONITOR ST B HR 107 . SITTING ON CHAIR NOT IN DISTRESS, ABLE TO EAT GOOD DINNER , CALL LIGHT WITHIN REACH , WILL CONT TO MONITOR, NO SOB NOTED AT THIS TIME
[2020-08-19 20:00] VITALS: BP 113/59
--- NOTE | 2020-08-19 20:00 | NUR ---
SKIP TRACER NOTE PT SITTING UP IN CHAIR, A/O X 4, NO SOB NO DISTRESS OR DISCOMFORT NOTED. DENIES PAIN. AT THIS TIME. ON TELE SR HR 85. SIDE RAILS UP X 2 AND CALL LIGHT WITHIN REACH. VSS. CONTINUE TO MONITOR HIM.
--- NOTE | 2020-08-19 22:44 | NUR ---
CRAB CATCHER NOTE PT ASKING FOR PAIN MED TO BE CHANGED TO PERCOCET AND ALSO ASKING FOR SLEEPING MED. TONY FIELD INFORMED AND RECEIVED NEW ORDER, ORDER NOTED AND CARRIED OUT.
[2020-08-19] MEDS: LORAZEPAM 0.5 MG TABLET PO PRN (22:55)
[2020-08-19] MEDS ORDERED: oxyCODONE/APAP (5/325 MG) 1 UDTAB TABLET PO PRN (23:00)
[2020-08-19] MEDS: oxyCODONE/APAP (5/325 MG) 1 UDTAB TABLET PO PRN (23:10)
--- NOTE | 2020-08-19 23:44 | NUR ---
MS RN NOTE PAIN SUBSIDED 06/30 AND ALSO ANXIETY SUBSIDED.
[2020-08-20] VITALS: BP 107/65
[2020-08-20 04:00] VITALS: BP 106/55
--- NOTE | 2020-08-20 06:29 | NUR ---
MS RN NOTE PT IN BED ASLEEP, NO DISTRESS OR DISCOMFORT NOTED. DENIES PAIN. SIDE RAILS UP X 2 AND CALL LIGHT WITHIN REACH. VSS. WILL ENDORSE TO DAY SHIFT NURSE.
--- NOTE | 2020-08-20 07:10 | NUR ---
RN OPENING NOTE PATIENT RECEIVED LAYING IN SUPINE POSITION, RESTING COMFORTABLY. PATIENT ON ROOM AIR TOLERATING WELL. LEFT AC ANGELINE #18 INTACT AND PATENT. INFORMED FROM DISTRICT ENGINEER THAT PATIENT HAS BEEN NPO SINCE MIDNIGHT FOR AV SHUNT REPLACEMENT TODAY. SAFETY PRECAUTIONS IMPLEMENTED, BED LOCKED IN LOWEST POSITION, SIDE RAILS UP X2, CALL LIGHT WITHIN REACH. WILL CONTINUE TO MONITOR AND PROVIDE CARE THROUGHOUT SHIFT.
--- NOTE | 2020-08-20 07:23 | NUR ---
LOGISTICS SPECIALIST NOTE ONE PILL ON PERCOCET WASTED WITH CHARGE NURSE CASSANDRA. PT ORDER WAS CHANGED TO TWO PILLS INSTEAD OF ONE. Addendum: 08/20/20 at 0727 by EPHRAIM CARDOZO RN UNABLE TO WASTE IN OMNI CELL
[2020-08-20 08:00] VITALS: BP 115/55
[2020-08-20] MEDS: POLYETHYLENE GLYCOL 3350 17 GM POWD.PACK PO SCH (09:00)
[2020-08-20] MEDS: LIDOCAINE 5% (PATCH) 1 EA PATCH TP SCH (09:00)
[2020-08-20] MEDS: DOCUSATE SODIUM 100 MG CAPSULE PO SCH ×2 (09:00→18:24)
[2020-08-20] MEDS: METOPROLOL TARTRATE 25 MG TABLET PO SCH ×3 (09:00→18:24)
[2020-08-20] MEDS: buPROPion SR 150 MG TABLET.ER PO SCH ×2 (09:00→18:23)
[2020-08-20] MEDS: risperiDONE 1 MG TABLET PO SCH (09:00)
[2020-08-20] MEDS: SENNOSIDES 8.6 MG TABLET PO SCH (09:00)
[2020-08-20] MEDS: LITHIUM CARBONATE 150 MG CAPSULE PO SCH (09:00)
[2020-08-20 09:49] LABS: ALBUMIN 3.3 g/dL (3.4-5.0); BASOPHILS % (AUTO) 1.1 % (0.0-2.0); BILIRUBIN,TOTAL 0.6 mg/dL (0.2-1.0); EOSINOPHILS % (AUTO) 9.9 % (0.0-6.0); HEMATOCRIT 23 % (39-51); HEMOGLOBIN 7.5 g/dL (13.5-17.5); LYMPHOCYTES # (AUTO) 0.6 /CMM (0.8-4.8); LYMPHOCYTES % (AUTO) 16.7 % (20.0-44.0); MAGNESIUM 2.4 mg/dL (1.8-2.4); MEAN CORPUSCULAR HGB CONC 33 g/dl (31.0-36.0); MEAN CORPUSCULAR VOLUME 91 fL (80-96); MONOCYTES # (AUTO) 0.3 /CMM (0.1-1.30); MONOCYTES % (AUTO) 7.4 % (2.0-12.0); NEUTROPHILS # (AUTO) 2.3 /CMM (1.8-8.9); NEUTROPHILS % (AUTO) 64.9 % (43.0-81.0); PHOSPHORUS 7.8 mg/dL (2.5-4.9); PLATELET COUNT (AUTO) 163 /CMM (150-450); POTASSIUM 3.7 mmol/L (3.5-5.1); RED BLOOD CELL COUNT(AUTO) 2.48 MIL/uL (4.5-6.0); TOTAL PROTEIN, SERUM 6.4 g/dL (6.4-8.2); WHITE BLOOD COUNT (AUTO) 3.6 K/uL (4.3-11.0)
[2020-08-20 09:54] LABS: CREATININE 11.5 mg/dL (0.6-1.3)
[2020-08-20 12:00] VITALS: BP 136/50
[2020-08-20] MEDS ORDERED: THROMBIN (BOVINE) 5,000 UNITS VIAL TP ONE (13:33)
[2020-08-20] MEDS ORDERED: GELATIN SPONGE,ABSORBABLE 1 SPONGE SPONGE TP ONE (13:33)
[2020-08-20] MEDS ORDERED: IOHEXOL 240MG/ML 0 ML IV ONE (13:33)
[2020-08-20] MEDS ORDERED: LIDOCAINE HCL/MPF 1% 30 ML VIAL IJ ONE (13:33)
[2020-08-20] MEDS ORDERED: ANESTHESIA TRAY IN PYXIS 1 EA TRAY MC ONE (13:34)
--- NOTE | 2020-08-20 15:15 | NUR ---
Patient taken to OR by OR nurses for procedure
[2020-08-20] MEDS ORDERED: CLINDAMYCIN 900 MG/6 ML VIAL ONE (15:46)
[2020-08-20] MEDS ORDERED: HEPARIN SODIUM, PORCINE 1,000 UNIT/ML VIAL ONE (15:56)
[2020-08-20 16:00] VITALS: BP 117/29
[2020-08-20] MEDS ORDERED: FENTANYL PF 100MCG/2ML AMPUL ONE (16:14)
[2020-08-20] MEDS: oxyCODONE/APAP (5/325 MG) 1 UDTAB TABLET PO PRN (18:23)
[2020-08-20] MEDS: ropiniROLE 0.5 MG TABLET PO SCH (18:23)
--- NOTE | 2020-08-20 19:30 | NUR ---
RN NOTE RECEIVED PATIENT IN BED, AO X 4, IN NO S/SX OF ACUTE DISTRESS AT THIS TIME, STATUS POST PERMA CATH PLACEMENT AT RIGHT UPPER CHEST, NO SIGN OF BLEEDING NOTED, DRESSING DRY AND INTACT. NO SOB NOTED. PATIENT'S BREATHING IS EVEN AND UNLABORED, SATURATION AT 95% ON ROOM AIR, HR IS 105, BP 151/51. PATIENT COMPLAINING OF SEVERE PAIN IN THE NECK/POST OP SITE. STATED PERCOCET 10/[address] FIELD WAS NOTIFIED WITH ORDER RECEIVED. NOTED IV SITE AT RAC 18G, PATENT AND FLUSHING WELL, NO S/S OF INFECTION OR INFILTRATION. SAFETY MEASURES IMPLEMENTED. PATIENT BED ALARM IS ON. HEAD OF BED ELEVATED. BED IS LOCKED, IN LOWEST POSITION AND SIDE RAILS UP. CALL LIGHT WITHIN REACH OF THE PATIENT. WILL CONTINUE TO MONITOR AND REASSESS FOR ANY CHANGES.
[2020-08-20] MEDS: ACETAMINOPHEN 325 MG TABLET PO PRN (19:33)
--- NOTE | 2020-08-20 19:43 | NUR ---
PATIENT RECEIVED FROM OR AT 5:45 PM. MD ORDERS INCLUDED TO RESUME ALL PREOP MED / ORDERS/ DIET AND NEW LINE RIGHT UPPER CHEST PERMCATH IS OK TO USE FOR HD AND CLINDAMYCIN X2 DOSES. PATIENT ON O2 THERAPY VIA NC AT 3 LPM TOLERATING WELL. SAFETY PRECAUTIONS IMPLEMENTED, BED LOCKED IN LOWEST POSITION, SIDE RAILS UP X2, CALL LIGHT WITHIN REACH. PATIENT HAS RIGHT UPPER CHEST PERMCATH S/P SURGERY. WILL ENDORSE CARE TO UPCOMING SHIFT.
[2020-08-20 20:00] VITALS: BP 151/51
--- NOTE | 2020-08-20 20:01 | NUR ---
RN NOTE PATIENT COMPLAINING OF SEVERE PAIN FROM POST OPERATIVE SITE, PERCOCET 5-325 MG ADMINISTERED BY KAYLI SAN 99 MINS AGO, PATIENT STATES WAS INEFFECTIVE AND ASKING FOR A STRONGER MEDICATION. DR FIELD WAS NOTIFIED, ORDERS RECEIVED TO INCREASE DOSE TO 10-325 MG. DENISE SAN MADE AWARE. Addendum: 08/20/20 at 2057 by DONTAE STEWART RN ADVISED DR FIELD PATIENT CURRENTLY ON PERCOCET 10-325 MG TO WHICH PATIENT STATED WAS INEFFECTIVE TO CONTROL THE PAIN. ORDERS RECEIVED FOR MORPHINE SULFATE 4 MG IVP Q4H PRN. DENISE SAN MADE AWARE.
[2020-08-20] MEDS: MORPHINE SULFATE INJ 4 MG/ML DISP.SYRIN IV PRN (20:46)
[2020-08-21] VITALS: BP 113/55
[2020-08-21] MEDS: CLINDAMYCIN 600 MG in IV D5W 50 ML IV SCH ×2 (00:07→09:20)
[2020-08-21] MEDS: MORPHINE SULFATE INJ 4 MG/ML DISP.SYRIN IV PRN ×3 (03:55→20:03)
[2020-08-21 04:00] VITALS: BP_SYST 113; BP_SYST 118; BP_DIAS 55; BP_DIAS 57
--- NOTE | 2020-08-21 07:53 | NUR ---
MS RN OPENING NOTES RECEIVED PATIENT IN BED, AWAKE, A/O X4. PATIENT ON OXYGEN THERAPY AT 2 LPM VIA NASAL CANNULA; BREATHING EVEN AND UNLABORED. COMPLAINING OF MILD PAIN BUT SAID NO TO PAIN MEDS AT THIS TIME. IV ACCESS AT R HAND G # 22 PRESENT AND INTACT. SAFETY PRECAUTIONS IN PLACE; BED IN LOW POSITION AND LOCKED, RAILS UP X2, CALL LIGHT WITHIN REACH. WILL CONTINUE TO MONITOR PATIENT.
[2020-08-21 08:00] VITALS: BP 130/63
[2020-08-21 08:09] VITALS: BP 130/63
[2020-08-21] MEDS: POLYETHYLENE GLYCOL 3350 17 GM POWD.PACK PO SCH (09:00)
[2020-08-21] MEDS: LIDOCAINE 5% (PATCH) 1 EA PATCH TP SCH (09:00)
[2020-08-21] MEDS: DOCUSATE SODIUM 100 MG CAPSULE PO SCH ×2 (09:00→16:23)
[2020-08-21] MEDS: risperiDONE 1 MG TABLET PO SCH (09:08)
[2020-08-21] MEDS: buPROPion SR 150 MG TABLET.ER PO SCH ×2 (09:08→16:32)
[2020-08-21] MEDS: LITHIUM CARBONATE 150 MG CAPSULE PO SCH (09:08)
[2020-08-21] MEDS: SENNOSIDES 8.6 MG TABLET PO SCH (09:08)
[2020-08-21] MEDS: METOPROLOL TARTRATE 25 MG TABLET PO SCH ×2 (09:09→16:27)
--- NOTE | 2020-08-21 09:57 | NUR ---
MS RN NOTES PATIENT COMPLAINING OF PAIN 10/10 AT THE SURGICAL SITE; REQUESTING PAIN MEDICATION. PRN MORPHINE ADMINISTERED. WILL CONTINUE TO MONITOR.
[2020-08-21] MEDS: ACETAMINOPHEN 325 MG TABLET PO PRN (10:26)
--- NOTE | 2020-08-21 10:28 | NUR ---
MS RN NOTES PATIENT COMPLAINING OF HEADACHE; ASKING FOR TYLENOL. PRN TYLENOL ADMINISTERED PER MD ORDER.
[2020-08-21] MEDS ORDERED: EPOETIN ALFA (10,000 UNIT) 10,000 UNIT/ML VIAL IV ONE (15:00)
[2020-08-21] MEDS ORDERED: EPOETIN ALFA (20,000 UNIT) 20,000 UNIT/ML VIAL IV ONE (15:00)
--- NOTE | 2020-08-21 15:23 | NUR ---
MS RN NOTES DIALYSIS COMPLETED; 2 L OUT. BP 105/50 HR 78 WILL CONTINUE TO MONITOR PATIENT.
--- NOTE | 2020-08-21 15:49 | NUR ---
MS RN NOTES PER PHARMACY TO ADMINISTER 1500 O'CLOCK EPOGEN AFTER DIALYSIS. AFTER DIALYSIS PATIENT STATES HE RECEIVES EPOGEN EVERY TIME WITH DIALYSIS. MD CONTACTED (DR. HARRIS) ; PER MD MCKEE TO ADMINISTER EPOGEN SQ. ORDER CARRIED OUT.
[2020-08-21] MEDS: oxyCODONE/APAP (5/325 MG) 1 UDTAB TABLET PO PRN (16:33)
--- NOTE | 2020-08-21 16:35 | NUR ---
MS RN NOTES PATIENT COMPLAINING OF PAIN AT SURGICAL SITE (HD CATH INSERTION); REQUESTING PAIN MEDICATION. PRN PERCOCET ADMINISTERED PER MD ORDER. WILL CONTINUE TO MONITOR.
[2020-08-21 16:50] VITALS: BP 103/47
[2020-08-21] MEDS: ropiniROLE 0.5 MG TABLET PO SCH (17:25)
--- NOTE | 2020-08-21 18:41 | NUR ---
MS RN CLOSING NOTES PATIENT REMAINS IN BED, ASLEEP. PATIENT ON OXYGEN THERAPY AT 4 LPM VIA NASAL CANNULA; BREATHING EVEN AND UNLABORED. COMPLAINING OF MILD PAIN AT RIGHT CHEST WALL (HD CATH INSERTION SITE). IV ACCESS AT R HAND G # 22 PRESENT AND INTACT. ALL NEEDS ATTENDED THROUGHOUT THE DAY. SAFETY PRECAUTIONS IN PLACE; BED IN LOW POSITION AND LOCKED, RAILS UP X2, CALL LIGHT WITHIN REACH. WILL ENDORSE TO SURFACE SUPERVISOR NURSE.
[2020-08-21 22:00] VITALS: BP 101/24
[2020-08-22 04:00] VITALS: BP 104/36
[2020-08-22] MEDS: oxyCODONE/APAP (5/325 MG) 1 UDTAB TABLET PO PRN ×2 (04:22→20:05)
[2020-08-22] MEDS: MORPHINE SULFATE INJ 4 MG/ML DISP.SYRIN IV PRN (05:11)
[2020-08-22 06:48] LABS: C-REACTIVE PROTEIN 2.9 mg/dL (0.0-0.9)
--- NOTE | 2020-08-22 07:20 | NUR ---
RN notes In bed resting comfortably complaining of generalized pain. Gave Morphine x2 and percocet with relief. On 4 liters oxygen tolerating well. Breathing even and unlabored. Vital signs within normal limits. Alert and oriented, able to verbalize needs. Endorsed to next shift for continuity of care.
[2020-08-22 08:00] VITALS: BP 105/34
[2020-08-22] MEDS: LITHIUM CARBONATE 150 MG CAPSULE PO SCH (08:07)
[2020-08-22] MEDS: buPROPion SR 150 MG TABLET.ER PO SCH ×2 (08:07→17:21)
[2020-08-22] MEDS: DOCUSATE SODIUM 100 MG CAPSULE PO SCH ×2 (08:07→17:20)
[2020-08-22] MEDS: risperiDONE 1 MG TABLET PO SCH (08:07)
[2020-08-22] MEDS: LIDOCAINE 5% (PATCH) 1 EA PATCH TP SCH (08:11)
[2020-08-22] MEDS: METOPROLOL TARTRATE 25 MG TABLET PO SCH ×2 (08:11→17:20)
[2020-08-22] MEDS: SENNOSIDES 8.6 MG TABLET PO SCH (08:11)
[2020-08-22] MEDS: POLYETHYLENE GLYCOL 3350 17 GM POWD.PACK PO SCH (08:11)
[2020-08-22 16:00] VITALS: BP 142/50
[2020-08-22] MEDS: ropiniROLE 0.5 MG TABLET PO SCH (17:20)
--- NOTE | 2020-08-22 19:00 | NUR ---
RN OPENING NOTE RECEIVED PATIENT IN BED RESTING ALERT ORIENTED X4 VERBALLY RESPONSIVE ON 4L OXYGEN VIA NASAL CANNULA,O2:93% IV SITE IS ON RIGHT HAND INTACT PATENT AMBULATORY,CONTINENT TO BOWEL/BLADDER CALL LIGHT WITHIN REACH,SAFETY MEASURE IMPLEMENT, BED IN LOW POSITION AND LOCKED CONTINUE TO MONITOR.
[2020-08-23] VITALS: BP 129/47
--- NOTE | 2020-08-23 01:00 | NUR ---
RN NOTE PATIENT COMPLAINING OF SHORT OF BREATH AND NOT COMFORTABLE INCREASED OXYGEN FROM 4L TO 5L VIA MASK ALSO HE REQUESTING FOR BREATHING TREATMENT NOTIFIED DR FIELD REGARDING O2 ,HE ORDERED WITH NEW ORDER FOR BREATHING TREATMENT NOTED AND CARRIED OUT.
[2020-08-23] MEDS ORDERED: ALBUTEROL FS 2.5 MG/0.5 ML VIAL.NEB NEB PRN (02:00)
[2020-08-23] MEDS ORDERED: ALBUTEROL FS 2.5 MG/0.5 ML VIAL.NEB NEB SCH (03:30)
--- NOTE | 2020-08-23 06:25 | NUR ---
RN CLOSING NOTE PATIENT REMAINS IN ALERT ORIENTED X4 VERBALLY RESPONSIVE ON 5L OXYGEN VIA REGULAR MASK O2:96% NOT ACUTE DISTRESS NOTED,AMBULATORY CONTINENT TO BOWEL/BLADDER,PAIN PILL GIVEN FOR PAIN MANAGEMENT, KEPT CALL LIGHT WITHIN REACH,KEPT COMFORTABLE,ENDORSE NEXT COMING SHIFT FOR CONTINUATION OF CARE.
[2020-08-23 08:00] VITALS: BP 105/60
--- NOTE | 2020-08-23 08:00 | NUR ---
RN OPENING NOTES Patient is alert but not oriented. Patient is on room air saturating 97% on 5 liters simple mask with no s/s of respiratory distress. No c/o pain or discomfort.Bed is in lowest and locked position.Call light with in reach. Will continue to monitor.
[2020-08-23] MEDS: SENNOSIDES 8.6 MG TABLET PO SCH (09:00)
[2020-08-23] MEDS: DOCUSATE SODIUM 100 MG CAPSULE PO SCH ×2 (09:00→17:00)
[2020-08-23] MEDS: METOPROLOL TARTRATE 25 MG TABLET PO SCH ×2 (09:00→09:25)
[2020-08-23] MEDS: LIDOCAINE 5% (PATCH) 1 EA PATCH TP SCH ×2 (09:00→09:30)
[2020-08-23] MEDS: POLYETHYLENE GLYCOL 3350 17 GM POWD.PACK PO SCH (09:00)
[2020-08-23] MEDS: risperiDONE 1 MG TABLET PO SCH (09:29)
[2020-08-23] MEDS: LITHIUM CARBONATE 150 MG CAPSULE PO SCH (09:29)
[2020-08-23] MEDS: buPROPion SR 150 MG TABLET.ER PO SCH ×2 (09:29→17:26)
[2020-08-23 09:37] LABS: ABG OXYGEN SATURATION 94.7 % (92.0-98.5); ABG PH 7.424 (7.350-7.450); AaDO2 230.8 mmHg; COHb 1.4 % (0.5-1.5); MetHb 0.2 % (0.0-1.5); O2Hb 93.2 % (94.0-97.0); SITE, ABG Left Brachial; VENT MODE, BG 6L SM
[2020-08-23 10:08] LABS: CALCIUM, SERUM 8.8 mg/dL (8.5-10.1); POTASSIUM 5.9 mmol/L (3.5-5.1)
[2020-08-23 10:13] LABS: BASOPHILS % (AUTO) 1.1 % (0.0-2.0); CREATININE 13.8 mg/dL (0.6-1.3); EOSINOPHILS % (AUTO) 9.2 % (0.0-6.0); HEMATOCRIT 21 % (39-51); LYMPHOCYTES # (AUTO) 0.4 /CMM (0.8-4.8); LYMPHOCYTES % (AUTO) 14.5 % (20.0-44.0); MEAN CORPUSCULAR HGB CONC 33 g/dl (31.0-36.0); MEAN CORPUSCULAR VOLUME 91 fL (80-96); MONOCYTES # (AUTO) 0.3 /CMM (0.1-1.30); MONOCYTES % (AUTO) 10.6 % (2.0-12.0); NEUTROPHILS # (AUTO) 1.6 /CMM (1.8-8.9); NEUTROPHILS % (AUTO) 64.6 % (43.0-81.0); PLATELET COUNT (AUTO) 151 /CMM (150-450); RED BLOOD CELL COUNT(AUTO) 2.26 MIL/uL (4.5-6.0); WHITE BLOOD COUNT (AUTO) 2.5 K/uL (4.3-11.0)
[2020-08-23] MEDS: ALBUTEROL FS 2.5 MG/0.5 ML VIAL.NEB NEB SCH ×4 (10:25→23:30)
[2020-08-23 10:44] LABS: HEMOGLOBIN 6.8 g/dL (13.5-17.5)
[2020-08-23] MEDS ORDERED: EPOETIN ALFA (10,000 UNIT) 10,000 UNIT/ML VIAL IV ONE (11:08)
--- NOTE | 2020-08-23 12:16 | NUR ---
Received critical lab results of hgb of 6.8 and informed MD Trevino. Orders already noted for Epoetin and no further orders per Addendum: 08/23/20 at 1218 by ANTWAN SUMMERS RN No orders for Blood tranfusion per
[2020-08-23 12:34] LABS: BAND % (MANUAL) 1 % (0.0-5.0); EOSINOPHILS % (MANUAL) 9 % (0-4); LYMPHOCYTES % (MANUAL) 15 % (16-48); MONOCYTES % (MANUAL) 5 % (0-11.0); NEUTROPHILS % (MANUAL) 70 (42-76)
[2020-08-23] MEDS ORDERED: ALBUMIN 25% 25 GM in PREMIX 1 EA IV PRN (13:00)
[2020-08-23 16:00] VITALS: BP 114/51
[2020-08-23] MEDS: NEPRO VAN 237 ML CAN PO SCH (17:00)
[2020-08-23] MEDS: ropiniROLE 0.5 MG TABLET PO SCH (17:26)
--- NOTE | 2020-08-23 19:44 | NUR ---
RN CLOSING NOTES Patient is alert and oriented. Patient is on nasal cannula at 5 litesr saturating 97% with no s/s of respiratory distress. Patient sitting on the chair by bedside. Hemodialysis done via permacath to right upper chest and noted with 3500 cc of output. Patient was given eoptein for hgb with HD. Per Dr Oh its ok to switch to cannula or mask as patient prefers. Endorsed to next shift for BRITNEY.Bed is in lowest and locked position.
[2020-08-23 20:00] VITALS: BP 132/49
--- NOTE | 2020-08-23 20:00 | NUR ---
MS RN NOTE PT SITTING UP IN CHAIR , FALLING ASLEEP. DOESN'T WANT TO LAY IN BED. A/O X 4, NO SOB, NO DISTRESS OR DISCOMFORT NOTED. DENIES PAIN AT THIS TIME. ON O2 5L VIA MASK. O2 SAT 96%. RT HAND S/L INTACT AND PATENT. SIDE RAILS UP X 2 AND CALL LIGHT WITHIN REACH. VSS. CONTINUE TO MONITOR HIM.
--- NOTE | 2020-08-23 23:43 | NUR ---
MS RN NOTE PT IN BED ASLEEP, NO DISTRESS OR DISCOMFORT NOTED. CALL LIGHT WITHIN REACH. CONTINUE TO MONITOR HIM.
[2020-08-24] VITALS (7 sets, daily range): BP systolic 106–148; BP diastolic 39–61
[2020-08-24] MEDS: oxyCODONE/APAP (5/325 MG) 1 UDTAB TABLET PO PRN ×2 (00:53→19:50)
--- NOTE | 2020-08-24 00:53 | NUR ---
MS RN NOTE PT IN BED WOKE UP C/O PAIN IN BILATERAL HIP 7/10 PERCOCET 2 TABS PO GIVEN CONTINUE TO MONITOR HIM.
--- NOTE | 2020-08-24 01:53 | NUR ---
MS RN NOTE PT IN BED ASLEEP, EASILY AROUSABLE. NO DISTRESS OR DISCOMFORT NOTED. DENIES PAIN. SIDE RAILS UP X 2 AND CALL LIGHT WITHIN REACH. WILL ENDORSE TO DAY SHIFT NURSE FOR CONTINUE TO CARE.
[2020-08-24] MEDS: ALBUTEROL FS 2.5 MG/0.5 ML VIAL.NEB NEB SCH ×6 (05:26→23:30)
[2020-08-24] MEDS: IPRATROPIUM NEB FS 0.5 MG/2.5 ML AMPUL.NEB NEB PRN (05:27)
[2020-08-24 05:53] LABS: BASOPHILS % (AUTO) 1.8 % (0.0-2.0); EOSINOPHILS % (AUTO) 7.5 % (0.0-6.0); LYMPHOCYTES # (AUTO) 0.4 /CMM (0.8-4.8); LYMPHOCYTES % (AUTO) 17.4 % (20.0-44.0); MEAN CORPUSCULAR HGB CONC 33 g/dl (31.0-36.0); MEAN CORPUSCULAR VOLUME 90 fL (80-96); MONOCYTES # (AUTO) 0.3 /CMM (0.1-1.30); MONOCYTES % (AUTO) 10.6 % (2.0-12.0); NEUTROPHILS # (AUTO) 1.5 /CMM (1.8-8.9); NEUTROPHILS % (AUTO) 62.7 % (43.0-81.0); PLATELET COUNT (AUTO) 166 /CMM (150-450); WHITE BLOOD COUNT (AUTO) 2.4 K/uL (4.3-11.0)
[2020-08-24 06:41] LABS: RED BLOOD CELL COUNT(AUTO) 1.99 MIL/uL (4.5-6.0)
[2020-08-24 06:46] LABS: CALCIUM, SERUM 8.6 mg/dL (8.5-10.1); HEMATOCRIT 18 % (39-51); MAGNESIUM 2.2 mg/dL (1.8-2.4); PHOSPHORUS 7.7 mg/dL (2.5-4.9); POTASSIUM 4.7 mmol/L (3.5-5.1)
--- NOTE | 2020-08-24 06:50 | NUR ---
MS RN NOTE BANANA HANDLER CALLED FOR H/H 6.0, QUE FIELD DNP CALLED AND RECEIVED NEW ORDER TO TRANSFUSE 2 UNITS OF PRBC. ORDER NOTED AND CARRIED OUT.
[2020-08-24 07:11] LABS: CREATININE 11.1 mg/dL (0.6-1.3)
--- NOTE | 2020-08-24 07:27 | NUR ---
RN OPENING NOTES Patient is alert and oriented. Patient is on nasal cannula at 5 liters saturating 99% with no s/s of respiratory distress. Patient sitting on the chair by bedside when received from noc shift. Received endorsement from shiftman nurse to transfuse 2 units of Prbc due to hgb of 6.0. Informed Everardo Mar and per to only tranfuse one unit. Blood bank made aware and patient is aware. Per md , ok to give it with hemodialysis. Patient educated regarding safety and fall precautions and to use call light for assistance.
[2020-08-24] MEDS: NEPRO VAN 237 ML CAN PO SCH ×2 (08:00→17:00)
[2020-08-24 08:06] LABS: *ANA ANTI-CENTROMERE B AB <0.2 AI (0.0-0.9); *ANA ANTI-DNA(DS) AB, QN 1 IU/mL (0-9); *ANA ANTI-JO-1 <0.2 AI (0.0-0.9); *ANA ANTICHROMATIN ANTIBODY <0.2 AI (0.0-0.9); *ANA RNP ANTIBODIES <0.2 AI (0.0-0.9); *ANA SJOGREN'S ANTI-SS-A <0.2 AI (0.0-0.9); *ANA SJOGREN'S ANTI-SS-B <0.2 AI (0.0-0.9); *ANAANTI-SCLERODERMA-70 AB <0.2 AI (0.0-0.9); *ANASMITH AB <0.2 AI (0.0-0.9)
[2020-08-24] MEDS: LIDOCAINE 5% (PATCH) 1 EA PATCH TP SCH ×2 (09:00→09:35)
[2020-08-24] MEDS: DOCUSATE SODIUM 100 MG CAPSULE PO SCH ×2 (09:00→16:52)
[2020-08-24] MEDS: POLYETHYLENE GLYCOL 3350 17 GM POWD.PACK PO SCH (09:00)
[2020-08-24] MEDS: METOPROLOL TARTRATE 25 MG TABLET PO SCH ×2 (09:00→18:22)
[2020-08-24] MEDS: SENNOSIDES 8.6 MG TABLET PO SCH (09:00)
[2020-08-24] MEDS: risperiDONE 1 MG TABLET PO SCH (09:34)
[2020-08-24] MEDS: buPROPion SR 150 MG TABLET.ER PO SCH ×2 (09:34→16:54)
[2020-08-24] MEDS: LITHIUM CARBONATE 150 MG CAPSULE PO SCH (09:34)
[2020-08-24] MEDS ORDERED: ACETAMINOPHEN 325 MG TABLET PO ONE (11:00)
[2020-08-24] MEDS ORDERED: diphenhydrAMINE HCL 50 MG/ML VIAL IV ONE (11:00)
--- NOTE | 2020-08-24 11:10 | NUR ---
Endorsed to another nurse regarding continuation of care and rregarding one unit of PRBC to be transfused along with patient's request for different stool softeners.
--- NOTE | 2020-08-24 11:11 | NUR ---
Endorsed to next nurse to give patient benadryl per DRINK WAITER Rosendo's order prior to HGB transfusion.
--- NOTE | 2020-08-24 11:11 | NUR ---
Received order from Dr Trevino to hold am BP meds.
[2020-08-24] MEDS: ACETAMINOPHEN 325 MG TABLET PO PRN (11:53)
[2020-08-24] MEDS ORDERED: MINERAL OIL 133 ML (PYXIS) 1 EA ENEMA RC ONE (12:00)
[2020-08-24] MEDS: MORPHINE SULFATE INJ 4 MG/ML DISP.SYRIN IV PRN ×2 (12:14→22:21)
--- NOTE | 2020-08-24 12:14 | NUR ---
GIVEN MORPHINE FOR BAKARI. HIP PAIN.
--- NOTE | 2020-08-24 12:30 | NUR ---
GETTING BLOOD TRANSFUSION WITH DIALYSIS,PRE- MED OF BENADRYL AND TYLENOL.
[2020-08-24] MEDS: LACTULOSE 10 G/15 ML UDC (PYXIS) PO SCH (16:40)
[2020-08-24] MEDS: SORBITOL SOLUTION 30 ML PO SCH (16:41)
[2020-08-24] MEDS: ropiniROLE 0.5 MG TABLET PO SCH (16:54)
--- NOTE | 2020-08-24 18:00 | NUR ---
GIVEN LAXATIVE STATES NO BM FOR SOME TIME.
--- NOTE | 2020-08-24 19:30 | NUR ---
MS RN OPENING NOTES: RECEIVED PT IN BED, AWAKE, A/O X4. NO S/S OF DISTRESS NOTED. CALL LIGHT WITHIN REACH. BED ALARM ON. BED IN LOWEST AND LOCKED POSITION. ON O2 AT 4L/MIN NASAL CANNULA. NO BM YET. PATIENT STATES THAT HE IS ANURIC. HAD HD EARLIER TODAY WITH 2.7L OUT PER REPORT FROM JASWINDER MONTANEZ.
--- NOTE | 2020-08-24 20:56 | NUR ---
pain level at this time is 8/10, patient is calm and relaxed, no facial grimaces, offered the prn morphine patient declined.
--- NOTE | 2020-08-24 21:11 | NUR ---
PATIENT WENT TO THE CHAIR BY HIMSELF. OFFERED HOSPITAL SOCKS PATIENT DECLINED.
--- NOTE | 2020-08-24 21:36 | NUR ---
PATIENT STILL SITTING IN THE BEDSIDE CHAIR WITH CALL LIGHT WITHIN REACH, INSTRUCTED PATIENT TO CALL FOR ANY HELP AND ASSISTANCE, VERBALIZED UNDERSTANDING. PATIENT STATES " I'M OKAY. NO DIZZINESS". PATIENT IS CALM AND COMFORTABLE. NO S/S OF DISTRESS NOTED.
--- NOTE | 2020-08-24 23:04 | NUR ---
PATIENT WENT BACK TO BED,ASLEEP AT THIS TIME, CALL LIGHT WITHIN REACH.
[2020-08-25] MEDS: oxyCODONE/APAP (5/325 MG) 1 UDTAB TABLET PO PRN ×2 (03:45→21:20)
[2020-08-25] MEDS: ALBUTEROL FS 2.5 MG/0.5 ML VIAL.NEB NEB SCH ×6 (04:07→23:30)
[2020-08-25] MEDS: LACTULOSE 10 G/15 ML UDC (PYXIS) PO SCH ×5 (05:58→23:37)
--- NOTE | 2020-08-25 06:40 | NUR ---
MS RN CLOSING NOTES: PATIENT IN BED, ASLEEP, NO S/S OF DISTRESS NOTED. CALL LIGHT WITHIN REACH. BED IN LOWEST AND LOCKED POSITION. RESTED THROUGHOUT THE NIGHT. UP TO THE CHAIR FEW TIMES DURING THE SHIFT.
[2020-08-25] MEDS: ACETAMINOPHEN 325 MG TABLET PO PRN ×2 (07:45→19:16)
--- NOTE | 2020-08-25 07:55 | NUR ---
MS RN OPENING NOTE PATIENT IS IN BED RESTING. PATIENT IS IN NO ACUTE DISTRESS. PATIENT IS ON OXYGEN 4L ON NASAL CANNULA. TOLERATING WELL. NO SOB NOTED. SAFETY PRECAUTIONS ARE IN PLACE. BED IS LOCKED AND IN THE LOWEST POSITION, WITH SIDE RAILS ARE UP. WILL CONTINUE TO MONITOR CLOSELY THROUGHOUT THE SHIFT.
[2020-08-25] MEDS: NEPRO VAN 237 ML CAN PO SCH ×2 (08:00→17:05)
[2020-08-25 08:06] LABS: CALCIUM, SERUM 9.3 mg/dL (8.5-10.1); POTASSIUM 4.3 mmol/L (3.5-5.1)
[2020-08-25 08:07] LABS: CREATININE 9.7 mg/dL (0.6-1.3)
[2020-08-25 08:13] LABS: BASOPHILS % (AUTO) 1.8 % (0.0-2.0); EOSINOPHILS % (AUTO) 10.6 % (0.0-6.0); HEMATOCRIT 21 % (39-51); HEMOGLOBIN 7.2 g/dL (13.5-17.5); LYMPHOCYTES # (AUTO) 0.4 /CMM (0.8-4.8); LYMPHOCYTES % (AUTO) 16.3 % (20.0-44.0); MEAN CORPUSCULAR HGB CONC 34 g/dl (31.0-36.0); MEAN CORPUSCULAR VOLUME 91 fL (80-96); MONOCYTES # (AUTO) 0.3 /CMM (0.1-1.30); NEUTROPHILS # (AUTO) 1.7 /CMM (1.8-8.9); NEUTROPHILS % (AUTO) 61.3 % (43.0-81.0); PLATELET COUNT (AUTO) 204 /CMM (150-450); RED BLOOD CELL COUNT(AUTO) 2.36 MIL/uL (4.5-6.0); WHITE BLOOD COUNT (AUTO) 2.8 K/uL (4.3-11.0)
[2020-08-25] MEDS: POLYETHYLENE GLYCOL 3350 17 GM POWD.PACK PO SCH (09:00)
[2020-08-25] MEDS: SORBITOL SOLUTION 30 ML PO SCH (09:00)
[2020-08-25] MEDS: DOCUSATE SODIUM 100 MG CAPSULE PO SCH ×2 (09:00→17:00)
[2020-08-25] MEDS: SENNOSIDES 8.6 MG TABLET PO SCH (09:00)
[2020-08-25] MEDS: LIDOCAINE 5% (PATCH) 1 EA PATCH TP SCH (09:00)
[2020-08-25] MEDS: buPROPion SR 150 MG TABLET.ER PO SCH ×2 (09:02→17:02)
[2020-08-25] MEDS: METOPROLOL TARTRATE 25 MG TABLET PO SCH ×2 (09:02→17:00)
[2020-08-25] MEDS: risperiDONE 1 MG TABLET PO SCH (09:02)
[2020-08-25] MEDS: LITHIUM CARBONATE 150 MG CAPSULE PO SCH (09:02)
[2020-08-25] MEDS: ONDANSETRON HCL/PF 4 MG/2 ML VIAL IVP PRN ×2 (13:02→19:17)
[2020-08-25] MEDS ORDERED: AMLO5TAB4 PO (13:59)
[2020-08-25] MEDS ORDERED: MINERAL OIL 133 ML (PYXIS) 1 EA ENEMA RC ONE (14:00)
--- NOTE | 2020-08-25 16:59 | NUR ---
MS RN NOTE PATIENT REFUSED ENEMA, EDUCATED RISK VS BENEFITS, PATIENT KEPT ON REFUSING
[2020-08-25] MEDS: ropiniROLE 0.5 MG TABLET PO SCH (17:02)
--- NOTE | 2020-08-25 18:48 | NUR ---
MS RN NOTE RECEIVED A PHONE CALL FROM ALFREDO FROM [facility], ASKING TO HOLD PATIENTS DISCHARGE UNTIL TOMORROW, DUE TO RN NOT BEING PRESENT AT THE MOMENT OF ADMISSION. CONTACTED CASE MANAGEMENT WAITING ON THE RESPONSE.
--- NOTE | 2020-08-25 18:52 | NUR ---
MS RN CLOSING NOTE PATIENT IS IN BED RESTING. PATIENT IS IN NO ACUTE DISTRESS. PATIENT IS ON OXYGEN 4L ON NASAL CANNULA. TOLERATING WELL. NO SOB NOTED. PATIENT IS SCHEDULED TO BE DISCHARGED. SAFETY PRECAUTIONS ARE IN PLACE. BED IS LOCKED AND IN THE LOWEST POSITION, WITH SIDE RAILS ARE UP. ENDORSE PATIENT TO PMO BUSINESS ANALYST FOR BRITNEY.
--- NOTE | 2020-08-25 18:58 | NUR ---
MATTY DALY AWARE SNF UNABLE TO TAKE PT. TONITE ,AMBULNCE PLACE ON WILL CALL.
--- NOTE | 2020-08-25 19:05 | NUR ---
received pt on chair sitting and watching tv alert oriented x4 able to verbalized needs on room air tolerating well SPO2 98% have right hand iv # 22 patent and flushed dressing clean dry and intact, bed on lowest position and locked side rails up x 2 call light within reach will cont to monitor
[2020-08-25 20:00] VITALS: BP 121/48
[2020-08-25] MEDS: LORAZEPAM 0.5 MG TABLET PO PRN (21:20)
--- NOTE | 2020-08-25 23:38 | NUR ---
UNABLE TP ADMINISTERED LACTULOSE PATIENT REFUSED TO TAKE IT BECAUSE IT WILL UPSET GHIS STOMACH IN THE MIDDLE OF THE NIGHT, RISK AND BENEFITS WAS EXPALINED BUT PT STILL REFUSING
[2020-08-25] MEDS: MORPHINE SULFATE INJ 4 MG/ML DISP.SYRIN IV PRN (23:50)
[2020-08-26] VITALS (7 sets, daily range): BP systolic 95–124; BP diastolic 30–51
[2020-08-26] MEDS: ALBUTEROL FS 2.5 MG/0.5 ML VIAL.NEB NEB SCH ×7 (04:15→23:30)
[2020-08-26] MEDS: LACTULOSE 10 G/15 ML UDC (PYXIS) PO SCH ×4 (06:00→23:30)
--- NOTE | 2020-08-26 06:09 | NUR ---
DUE LACTULOSE NOT ADMINISTERED PT REFUSED, RISK AND BENEFITS EXPLAINED BUT PT STILL REFUSING WILL CONT TO MONITOR
[2020-08-26 06:51] LABS: BASOPHILS % (AUTO) 1.3 % (0.0-2.0); EOSINOPHILS % (AUTO) 10.5 % (0.0-6.0); LYMPHOCYTES # (AUTO) 0.5 /CMM (0.8-4.8); LYMPHOCYTES % (AUTO) 19.4 % (20.0-44.0); MEAN CORPUSCULAR HGB CONC 34 g/dl (31.0-36.0); MEAN CORPUSCULAR VOLUME 91 fL (80-96); MONOCYTES # (AUTO) 0.3 /CMM (0.1-1.30); MONOCYTES % (AUTO) 10.2 % (2.0-12.0); NEUTROPHILS # (AUTO) 1.5 /CMM (1.8-8.9); NEUTROPHILS % (AUTO) 58.6 % (43.0-81.0); PLATELET COUNT (AUTO) 183 /CMM (150-450); RED BLOOD CELL COUNT(AUTO) 2.13 MIL/uL (4.5-6.0); WHITE BLOOD COUNT (AUTO) 2.6 K/uL (4.3-11.0)
[2020-08-26 07:05] LABS: ALBUMIN 3.1 g/dL (3.4-5.0); BILIRUBIN,TOTAL 0.8 mg/dL (0.2-1.0); POTASSIUM 4.4 mmol/L (3.5-5.1); TOTAL PROTEIN, SERUM 6.1 g/dL (6.4-8.2)
[2020-08-26 07:07] LABS: HEMATOCRIT 19 % (39-51); HEMOGLOBIN 6.5 g/dL (13.5-17.5)
[2020-08-26 07:16] LABS: CREATININE 11.4 mg/dL (0.6-1.3)
[2020-08-26] MEDS: IPRATROPIUM NEB FS 0.5 MG/2.5 ML AMPUL.NEB NEB PRN (07:25)
--- NOTE | 2020-08-26 07:30 | NUR ---
RN OPENING NOTE PT LAYING IN BED A/Ox4 ON NC 4LPM SPO2 94% WITH NO SIGNS OF RESP DEPRESSION OR SOB, BREATHING EVEN AND UNLABORED. PT HAS RT HAND IV #22 SL, FLUSHED AND PATENT WITH NO SIGNS OF INFECTION, PT HAS RT CHEST PERMACATH CLEAN AND INTACT. PT STATES THEY WANT TO WAIT UNTIL DIALYSIS FOR PAIN MEDS, OFFERED TO GIVE NOW, WILL WAIT. ALL PT SAFETY MEASURES IN PLACE, WILL CONT TO MONITOR
--- NOTE | 2020-08-26 08:00 | NUR ---
RN NOTE INFORMED MORTUARY BEAUTICIAN ROBI OF PT'S LOW H/H AND HIGH CREATININE
[2020-08-26] MEDS: POLYETHYLENE GLYCOL 3350 17 GM POWD.PACK PO SCH ×2 (08:49→09:00)
[2020-08-26] MEDS: LITHIUM CARBONATE 150 MG CAPSULE PO SCH (08:49)
[2020-08-26] MEDS: LIDOCAINE 5% (PATCH) 1 EA PATCH TP SCH ×2 (08:49→09:00)
[2020-08-26] MEDS: DOCUSATE SODIUM 100 MG CAPSULE PO SCH ×3 (08:49→16:43)
[2020-08-26] MEDS: risperiDONE 1 MG TABLET PO SCH (08:49)
[2020-08-26] MEDS: SORBITOL SOLUTION 30 ML PO SCH ×2 (08:50→09:00)
[2020-08-26] MEDS: SENNOSIDES 8.6 MG TABLET PO SCH ×2 (08:50→09:00)
[2020-08-26] MEDS: buPROPion SR 150 MG TABLET.ER PO SCH ×2 (08:50→16:38)
[2020-08-26] MEDS: NEPRO VAN 237 ML CAN PO SCH ×2 (08:52→17:53)
[2020-08-26] MEDS: METOPROLOL TARTRATE 25 MG TABLET PO SCH ×2 (08:52→16:38)
--- NOTE | 2020-08-26 09:00 | NUR ---
RN NOTE PT DENIED STOOL SOFTENER/LAXATIVE MEDS. PT TEACHING REGARDING PROS AND CONS DONE WITH PT'S UNDERSTANDING
[2020-08-26] MEDS: LORAZEPAM 0.5 MG TABLET PO PRN (16:38)
--- NOTE | 2020-08-26 16:38 | NUR ---
RN NOTE METOPROLOL HELD, PT TO RECEIVE DIALYSIS SHORTLY
[2020-08-26] MEDS: MORPHINE SULFATE INJ 4 MG/ML DISP.SYRIN IV PRN ×2 (16:48→21:02)
[2020-08-26] MEDS: ACETAMINOPHEN 325 MG TABLET PO PRN (16:56)
[2020-08-26] MEDS ORDERED: diphenhydrAMINE HCL 25 MG CAPSULE PO ONE (17:30)
[2020-08-26] MEDS: ropiniROLE 0.5 MG TABLET PO SCH (17:53)
--- NOTE | 2020-08-26 18:50 | NUR ---
RN NOTE PT TRANSFUSED 1UNIT PRBC DURING DIALYSIS WITH NO REACTION, HANDLED WELL. BATCH UNIT TREATER GAY HAD TO GO UP TO ICU FOR EMERGENCY DIALYSIS THEREFORE DIALYSIS WITH PT 101 HAD TO BE HELD. PER GAY, SVITLANA RN WILL COME IN AND FINISH DIALYSIS WITH PT SHORTLY
--- NOTE | 2020-08-26 19:00 | NUR ---
RN CLOSING NOTE NO CHANGES TO PT DURING SHIFT, 1 UNIT PRBC TRANSFUSED WILL NO COMPLICATIONS. PT IN STABLE CONDITION. PT TO BE DISCHARGED 08/27 @ 0600. ALL PT SAFETY PRECAUTIONS IN PLACE. WILL ENDORSE BRITNEY TO ONCOMING RN
--- NOTE | 2020-08-26 19:45 | NUR ---
RN NOTE PATIENT IN BED AWAKE, A/OX4. ON 4L NASAL CANNULA, O2 SAT WNL. NO SOB NOTED. WITH RIGHT HAND #22, LEAKING WHEN FLUSHED. ALSO WITH RIGHT CHEST PERM, DRESSING INTACT. COMPLAINED OF 9/10 BACK AND HIP PAIN, WILL ADMINISTER DUE PRN MEDS. PATIENT TO FINISH DIALYSIS THIS EVENING. CALL LIGHT WITHIN REACH. BED LOCKED AND IN LOWEST POSITION. SAFETY MEASURES IN PLACE. WILL CONTINUE TO MONITOR.
[2020-08-26] MEDS: oxyCODONE/APAP (5/325 MG) 1 UDTAB TABLET PO PRN (19:55)
--- NOTE | 2020-08-26 20:46 | NUR ---
RIGHT HAND #22 DRESSING CHANGED. FLUSHED WITH NS, NO LEAKING NOTED. DENIES ANY PAIN.
--- NOTE | 2020-08-26 23:08 | NUR ---
PATIENT COMPLETED HD, 2L REMOVED. IN STABLE CONDITION. WILL CONTINUE TO MONITOR.
--- NOTE | 2020-08-26 23:31 | NUR ---
PATIENT REFUSED LACTULOSE MEDICATION. OFFERED X3. RISKS AND BENEFITS EXPLAINED. STILL STRONGLY REFUSED. WILL CONTINUE TO MONITOR.
[2020-08-27] MEDS: LORAZEPAM 0.5 MG TABLET PO PRN (01:02)
[2020-08-27] MEDS: ALBUTEROL FS 2.5 MG/0.5 ML VIAL.NEB NEB SCH (03:30)
[2020-08-27 04:00] VITALS: BP 124/54
[2020-08-27] MEDS: LACTULOSE 10 G/15 ML UDC (PYXIS) PO SCH (05:32)
--- NOTE | 2020-08-27 05:32 | NUR ---
DUE LACTULOSE NON-ADMINISTERED. PATIENT REFUSED, OFFERRED X3. RISKS AND BENEFITS EXPLAINS, STILL REFUSED. WILL CONTINUE TO MONITOR.
[2020-08-27 07:11] LABS: IRON, SERUM 60 ug/dl (50-175); TOTAL IRON BINDING CAPACITY 169 ug/dl (250-450)
[2020-08-27 07:14] LABS: FERRITIN 1355 ng/mL (8-388)
--- NOTE | 2020-08-27 07:20 | NUR ---
PATIENT DISCHARGED AT THIS TIME TO [facility] VIA GURNEY. ACCOMPANIED BY 2 NREMT. IN STABLE CONDITION. NO SOB OR ANY RESPIRATORY DISTRESS. IV ACCESS RIGHT HAND D/C'D. ALL BELONGINGS TRANSFERRED WITH PATIENT. REPORT GIVEN TO PREET FROM [facility].
[2020-08-28] MEDS ORDERED: LORA-259 PO (13:34)
[2020-08-28] MEDS ORDERED: GABA-536 PO (13:34)
[2020-08-28] MEDS ORDERED: MAG-55 PO (13:34)
== END 2020-08-27 08:11 | DRG 314 ==
LOC: ER 10:46 → MEDSG1 12:54 → TELE1 18:15 → MEDSG1 08-20 08:28
PROVIDERS: ADMIT Internal Medicine; ATTEND Nurse Practitioner Acute Care
PROC: 02HV33Z Insertion of Infusion Device into Superior Vena Cava, Percutaneous Approach (ICD-10-PCS; principal; 2020-08-20)
PROC: B518ZZA Fluoroscopy of Superior Vena Cava, Guidance (ICD-10-PCS; 2020-08-20)
PROC: 5A1D70Z Performance of Urinary Filtration, Intermittent, Less than 6 Hours Per Day (ICD-10-PCS; 2020-08-21)
PROC: 30233N1 Transfusion of Nonautologous Red Blood Cells into Peripheral Vein, Percutaneous Approach (ICD-10-PCS; 2020-08-24)
DX: T82.510A Breakdown (mechanical) of surgically created arteriovenous fistula, initial encounter (principal); N18.6 End stage renal disease; I12.0 Hypertensive chronic kidney disease with stage 5 chronic kidney disease or end stage renal disease; D61.818 Other pancytopenia; C64.9 Malignant neoplasm of unspecified kidney, except renal pelvis; Y71.2 Prosthetic and other implants, materials and accessory cardiovascular devices associated with adverse incidents; E11.65 Type 2 diabetes mellitus with hyperglycemia; D63.8 Anemia in other chronic diseases classified elsewhere; Z99.2 Dependence on renal dialysis; Z20.822 Contact with and (suspected) exposure to COVID-19; K21.9 Gastro-esophageal reflux disease without esophagitis; G47.33 Obstructive sleep apnea (adult) (pediatric); E11.22 Type 2 diabetes mellitus with diabetic chronic kidney disease; E66.01 Morbid (severe) obesity due to excess calories; E87.5 Hyperkalemia; F17.200 Nicotine dependence, unspecified, uncomplicated; F39 Unspecified mood [affective] disorder; J44.9 Chronic obstructive pulmonary disease, unspecified; R09.02 Hypoxemia; Z79.899 Other long term (current) drug therapy; Z90.5 Acquired absence of kidney; R59.0 Localized enlarged lymph nodes; Z88.1 Allergy status to other antibiotic agents; Z88.8 Allergy status to other drugs, medicaments and biological substances; Z91.018 Allergy to other foods; Z79.51 Long term (current) use of inhaled steroids; Z79.84 Long term (current) use of oral hypoglycemic drugs
CPT/HCPCS: 36415; 36600; 71045-TC; 74018; 80048-TC; 80053-TC; 80061-TC; 80076-TC; 82728-TC; 82803-TC; 83540-TC; 83605-TC; 83735-TC; 83880; 84100-TC; 85025-TC; 85610-TC; 85730-TC; 86140-TC; 86225; 86235; 86431-TC; 86850-TC; 87040-TC; 87081-TC; 90935-TC; 94799-TC; A4216; A6403; C1750; C1769; G0378; J0885; J1200; J1644; J1885; J2270; J2405; J3010; J3490; J7050; J7060; P9016-BL; P9047; Q0163; Q9966

== ENCOUNTER 2020-08-28 12:50 | Inpatient (IN) | payer MEDICARE, OTHER ==
[~2020-08-28] VITALS: Ht 167.6 cm; Wt 112.5 kg
[~2020-08-28 12:50] MED LIST changes: +ACET-2605 PO; -ALPR0.25 PO; +AMLO5TAB4 PO; +CALC667C6 PO; +DOCU-141 PO; -GABA300C PO; -METH4TAB17 PO; -METO25TA20 PO; -MOME13HF IH; -PROC10TA13 PO; +SENN-175 PO; -SEVE800T8 PO; +TRIA16.99 NS
--- NOTE | 2020-08-28 13:20 | NUR ---
JULIO CESAR [facility] from [facility] "Was recently discharged from here missed dialysis today". On room air, breathing evenly and unlabored, connected to the monitor and pulse ox. Will continue to monitor accordingly.
[2020-08-28] MEDS ORDERED: GABA-536 PO (13:34)
[2020-08-28] MEDS ORDERED: LORA-259 PO (13:34)
[2020-08-28] MEDS ORDERED: MAG-55 PO (13:34)
[2020-08-28 13:46] LABS: BASOPHILS # (AUTO) 0.1 /CMM (0.0-0.2); BASOPHILS % (AUTO) 1.9 % (0.0-2.0); EOSINOPHILS % (AUTO) 12.1 % (0.0-6.0); HEMATOCRIT 24 % (39-51); LYMPHOCYTES # (AUTO) 0.4 /CMM (0.8-4.8); LYMPHOCYTES % (AUTO) 13.7 % (20.0-44.0); MEAN CORPUSCULAR HGB CONC 33 g/dl (31.0-36.0); MEAN CORPUSCULAR VOLUME 93 fL (80-96); MONOCYTES # (AUTO) 0.3 /CMM (0.1-1.30); MONOCYTES % (AUTO) 9.4 % (2.0-12.0); NEUTROPHILS % (AUTO) 62.9 % (43.0-81.0); PLATELET COUNT (AUTO) 220 /CMM (150-450); RED BLOOD CELL COUNT(AUTO) 2.63 MIL/uL (4.5-6.0); WHITE BLOOD COUNT (AUTO) 3.1 K/uL (4.3-11.0)
[2020-08-28 14:02] LABS: CALCIUM, SERUM 9.5 mg/dL (8.5-10.1); POTASSIUM 4.9 mmol/L (3.5-5.1)
[2020-08-28 14:03] LABS: CREATININE 11.4 mg/dL (0.6-1.3)
--- NOTE | 2020-08-28 15:52 | NUR ---
PATIENT ASLEEP IN BED. ON O2 VIA N/C AT 7LPM. CONNECTED TO MONITORS. VITAL SIGNS STABLE.
[2020-08-28] MEDS ORDERED: DOCUSATE SODIUM 100 MG CAPSULE PO SCH (17:00)
--- NOTE | 2020-08-28 17:14 | NUR ---
GOT BED 112
--- NOTE | 2020-08-28 17:41 | NUR ---
report given to Trino SAN for maire.
--- NOTE | 2020-08-28 18:38 | NUR ---
wheeled patient via gurney accompanied by RN and emt in no distress, RN at bedside to assume care.
[2020-08-28] MEDS ORDERED: LORAZEPAM 0.5 MG TABLET PO PRN (19:00)
[2020-08-28] MEDS: buPROPion SR 150 MG TABLET.ER PO SCH (19:30)
[2020-08-28 20:00] VITALS: BP 137/64
[2020-08-28] MEDS ORDERED: Z GUARD REMEDY 2 OZ OINT TP PRN (20:00)
[2020-08-28] MEDS ORDERED: ONDANSETRON HCL/PF 4 MG/2 ML VIAL IVP PRN (20:00)
[2020-08-28] MEDS ORDERED: ZOLPIDEM TARTRATE 5 MG TABLET PO PRN (20:00)
[2020-08-28] MEDS ORDERED: HYDROCODONE/APAP 5/325MG TABLET PO PRN (20:00)
[2020-08-28] MEDS ORDERED: ACETAMINOPHEN 325 MG TABLET PO PRN (20:00)
--- NOTE | 2020-08-28 20:00 | NUR ---
RN NOTE RECEIVED PT IN BED A/A/O X4, PT IS ON 5L VIA NC SATING 97%, NO SOB NOTED, PT IS ON TELE MONITOR SHOWING SR WITH HR IN 100s. SAFETY MEASURES IN PLACE.
[2020-08-28] MEDS ORDERED: GABAPENTIN 300 MG CAPSULE PO SCH (22:00)
[2020-08-28] MEDS ORDERED: oxyCODONE/APAP (5/325 MG) 1 UDTAB TABLET PO PRN (23:00)
[2020-08-29 00:04] VITALS: BP 127/58
[2020-08-29 04:00] VITALS: BP 127/58
[2020-08-29 07:09] LABS: BASOPHILS % (AUTO) 1.5 % (0.0-2.0); EOSINOPHILS % (AUTO) 8.6 % (0.0-6.0); HEMATOCRIT 22 % (39-51); HEMOGLOBIN 7.3 g/dL (13.5-17.5); LYMPHOCYTES # (AUTO) 0.5 /CMM (0.8-4.8); MEAN CORPUSCULAR HGB CONC 34 g/dl (31.0-36.0); MEAN CORPUSCULAR VOLUME 92 fL (80-96); MONOCYTES # (AUTO) 0.3 /CMM (0.1-1.30); NEUTROPHILS # (AUTO) 1.9 /CMM (1.8-8.9); NEUTROPHILS % (AUTO) 63.9 % (43.0-81.0); PLATELET COUNT (AUTO) 195 /CMM (150-450); RED BLOOD CELL COUNT(AUTO) 2.36 MIL/uL (4.5-6.0); WHITE BLOOD COUNT (AUTO) 2.9 K/uL (4.3-11.0)
--- NOTE | 2020-08-29 07:23 | NUR ---
RN NOTE REPORT GIVEN TO ONCOMING SHIFT FOR BRITNEY
[2020-08-29 07:59] LABS: ALBUMIN 3.5 g/dL (3.4-5.0); CALCIUM, SERUM 9.4 mg/dL (8.5-10.1); MAGNESIUM 2.3 mg/dL (1.8-2.4); PHOSPHORUS 5.5 mg/dL (2.5-4.9); POTASSIUM 4.1 mmol/L (3.5-5.1); TOTAL PROTEIN, SERUM 6.7 g/dL (6.4-8.2)
[2020-08-29 08:08] VITALS: BP 116/45
[2020-08-29 08:08] LABS: CREATININE 8.7 mg/dL (0.6-1.3)
[2020-08-29] MEDS ORDERED: LITHIUM CARBONATE 150 MG CAPSULE PO SCH (09:00)
[2020-08-29] MEDS: LIDOCAINE 5% (PATCH) 1 EA PATCH TP SCH ×2 (09:00→09:17)
--- NOTE | 2020-08-29 09:11 | NUR ---
M/S RN OPENING NOTES RECEIVED PT ON BED, AAOX4, ASLEEP, EASILY AROUSABLE,ON CPAP AT 5LPM, NO PRESENCE OF ACUTE RESPIRATORY DISTRESS, COMFORTABLE AT PRONE POSITION. ABD SOFT AND NON DISTENDED. DENIES PAIN AND DISCOMFORT. SKIN WARM TO TOUCH AND DRY. IV LINE AT RAC #20, PATENT IN FLUSHING. LEFT UPPER ARM AV FISTULA SHUNT NOT WORKING, WITH RIGHT CHEST PERMACATH FOR HD. COVID 19 PCR PENDING, ISOLATION PRECAUTION IMPLEMENTED. PATIENT CONCERN ATTENDED, BED IN LOW LOCKED POSITION, SRX2 UP FOR SAFETY. WILL CONTINUE TO MONITOR
[2020-08-29] MEDS: buPROPion SR 150 MG TABLET.ER PO SCH (09:17)
--- NOTE | 2020-08-29 09:20 | NUR ---
M/S RN NOTES PT SEEN AND EVALUATED BY DR. URBANO. NEW ORDER TO DC PATIENT TO [facility],CONTINUE HOME MEDS. ORDER READ BACK, NOTED AND CARRIED OUT. PT AWARE Addendum: 08/29/20 at 0930 by VINCE SAUNDERS RN HOSPITALIST: DR. OSBORN MADE AWARE BY CHARGE NURSE SOON PER BODILY INJURY ADJUSTER RECOMMENDATION
--- NOTE | 2020-08-29 09:22 | NUR ---
M/S RN NOTES PT REFUSED COLACE AND LIDOCAINE PATCH X3. CONT TO MONITOR
--- NOTE | 2020-08-29 10:17 | NUR ---
M/S RN NOTE4S RECEPTIONIST DOCTOR'S OFFICE TIME 1500 TO VLAD, REPORT GIVEN TO JOHNNY FOR EXPECTED RE-ADMISSION
[2020-08-29] MEDS ORDERED: EPOETIN ALFA (20,000 UNIT) 20,000 UNIT/ML VIAL SQ ONE (10:30)
[2020-08-29] MEDS ORDERED: NEPRO VAN 237 ML CAN PO SCH (11:00)
--- NOTE | 2020-08-29 15:25 | NUR ---
M/S COMMODITIES REQUIREMENTS ANALYST NOTES PT PICKED UP BY AMBULANCE VIA GURNEY WITH 2 EMT. PT AAOX4, RESPONSIVE TO ALL STIMULI. ON O2 AT 4LPM VIA N/C, TOLERATING WELL, SATING 97%, NO PRESENCE OF ACUTE RESPIRATORY DISTRESS. ABD SOFT AND NON DISTENDED WITH ACTIVE BOWEL SOUNDS. PT DENIES PAIN. SKIN REMAINED INTACT. IV LINE AND BAND REMOVED PER PROTOCOL. EXIT CARE GIVEN WITH PATIENT FULL UNDERSTANDING. ALL CONCERNS ATTENDED. PT LEFT IN STABLE CONDITION TO [facility].
== END 2020-08-29 15:26 | DRG 682 ==
LOC: ER 12:52 → TELE1 18:36 → MEDSG1 23:42
PROVIDERS: ADMIT Internal Medicine; ATTEND Internal Medicine
PROC: 5A1D70Z Performance of Urinary Filtration, Intermittent, Less than 6 Hours Per Day (ICD-10-PCS; principal; 2020-08-28)
DX: I12.0 Hypertensive chronic kidney disease with stage 5 chronic kidney disease or end stage renal disease (principal); N18.6 End stage renal disease; C64.9 Malignant neoplasm of unspecified kidney, except renal pelvis; C79.9 Secondary malignant neoplasm of unspecified site; G47.33 Obstructive sleep apnea (adult) (pediatric); E11.22 Type 2 diabetes mellitus with diabetic chronic kidney disease; Z99.2 Dependence on renal dialysis; Z91.15 Patient's noncompliance with renal dialysis; E11.42 Type 2 diabetes mellitus with diabetic polyneuropathy; Z90.5 Acquired absence of kidney; Z87.891 Personal history of nicotine dependence; Z87.01 Personal history of pneumonia (recurrent); Z79.899 Other long term (current) drug therapy; M89.9 Disorder of bone, unspecified; Z88.1 Allergy status to other antibiotic agents; Z88.8 Allergy status to other drugs, medicaments and biological substances; Z91.018 Allergy to other foods; E66.01 Morbid (severe) obesity due to excess calories; D63.8 Anemia in other chronic diseases classified elsewhere; R09.02 Hypoxemia; J45.909 Unspecified asthma, uncomplicated
CPT/HCPCS: 36415; 71045-TC; 80048-TC; 80053-TC; 83735-TC; 84100-TC; 85025-TC; 85730-TC; 87081-TC; 90935-TC; G0378; J0885; U0003